=== PATIENT | female | born 1995 | race Caucasian/White ===

== ENCOUNTER 2018-01-17 15:49 | Emergency (ER) | payer BC ==
[~2018-01-17] VITALS: Ht 170.2 cm; Wt 65.6 kg
[2018-01-17 15:56] VITALS: Ht 170.2 cm; Wt 65.6 kg
[2018-01-17] MEDS ORDERED: KETOROLAC TROMETHAMINE 30 MG/ML VIAL IV STA (17:09)
[2018-01-17] MEDS ORDERED: SODIUM CHLORIDE 0.9% 1000ML 2,000 ML IV STA (17:09)
[2018-01-17] MEDS ORDERED: ONDANSETRON INJ 2 MG/ML 2 ML VIAL IV STA (17:09)
[2018-01-17] MEDS ORDERED: OPTIRAY 320 IV PRN (17:15)
[2018-01-17 17:36] LABS: BASO % 0.2 %; BASO ABS # 0.01 K/uL (0-0.2); HEMATOCRIT 44.7 % (37-47); HEMOGLOBIN 15.6 g/dL (12.0-16.0); IG# 0.01 K/uL (0.00-0.02); LYMPH ABS # 0.81 K/uL (1.2-3.4); MEAN CELL VOLUME 87.5 fL (80-100); MEAN CORPUSCULAR HEMOGLOBIN 30.5 pg (25-34); MEAN CORPUSCULAR HGB CONC 34.9 g/dl (32-36); MONO % 6.1 %; MONO ABS # 0.38 K/uL (0.11-0.59); NEUT % 80.5 %; PLATELET COUNT 158 K/uL (130-400); RED CELL DISTRIBUTION WIDTH CV 13.1 % (11.5-14.5); RED CELL DISTRIBUTION WIDTH SD 42.3 fL (36.4-46.3); WHITE BLOOD COUNT 6.21 K/uL (4.8-10.8)
--- NOTE | 2018-01-17 17:38 | EMERGENCY ROOM VISIT NOTE ---
History Report prepared by [place]: Bere Chong Under the Supervision of: Dr. Jermain Duarte D.O. First contact with patient: 16:59 Chief Complaint: HEAD PAIN Stated Complaint: HIGH FEVER, HEADACHE, NAUSEA History of Present Illness The patient is a 22 year old female who presents to the Emergency Room with complaints of worsening stomach pain that she describes as a stabbing pain that began about three days ago. The patient states that her ribs feel sore. The patient states that currently she just feels nauseous but states that this morning she vomited. The patient also states that she also began to have a headache yesterday. She states that she has a dry cough that began yesterday, but denies a runny nose, sore throat, or ear pain. She states that she coughs when she feels like she is about to vomit. The patient also denies any diarrhea or urinary symptoms. She states that she did not take her temperature but last night she began to feel very hot and woke up sweating all over her body. The patient states that she went to a clinic today where she was told that she has a fever of 101.3 and she was told to come to the ED. The patient states that she just got her period today, but states that she has no other vaginal bleeding. The patient states that she has not eaten yet today. She states that she takes control and Claritin. The patient states that she still has her gallbladder and appendix. . Source of History: patient Onset: three days ago Position: abdomen Quality: stabbing Timing: worsening Associated Symptoms: + fevers, + headache, + cough (dry), + nausea, + vomiting, No sorethroat, No diarrhea, No urinary symptoms Review of Systems See HPI for pertinent positives & negatives. A total of 10 systems reviewed and were otherwise negative. Social History Smoking Status: Never Smoker Current/Historical Medications Scheduled Control Pills ( Control Pills), 1 TAB PO DAILY Loratadine & Pseudoephedrine (Claritin-D 24 Hour), 1 TAB PO DAILY Montelukast Sodium (Singulair), 10 MG PO QAM Scheduled PRN Albuterol Hfa (Ventolin Hfa), 2 PUFFS INH Q6H PRN for SOB/Wheezing Allergies Coded Allergies: Sulfa Antibiotics (Verified Allergy, Unknown, UNKNOWN, 01/17/18) Physical Exam Vital Signs Date Time Temp Pulse Resp B/P (MAP) Pulse Ox O2 Delivery O2 Flow Rate FiO2 01/17/18 22:48 37.5 108 16 106/57 98 01/17/18 22:11 37.6 01/17/18 22:08 109 20 97 Room Air 01/17/18 22:00 102/51 01/17/18 21:38 103 25 96 Room Air 01/17/18 21:30 102/56 01/17/18 21:08 109 22 100 Room Air 01/17/18 21:04 115 01/17/18 21:03 115/65 01/17/18 20:30 122/73 01/17/18 20:07 112 16 99 Room Air 01/17/18 20:00 116/71 01/17/18 19:36 111 18 100 Room Air 01/17/18 19:30 112/65 01/17/18 18:36 115 22 97 Room Air 01/17/18 18:35 37.6 125 20 123/66 98 Room Air 01/17/18 17:38 122 20 117/78 99 Room Air 01/17/18 17:09 144 01/17/18 15:56 39.5 142 20 118/76 98 Room Air Physical Exam GENERAL: Sitting up in bed, alert, well appearing, well nourished, no distress, non-toxic EYE EXAM: normal conjunctiva. PERRL and EOM's grossly intact. OROPHARYNX: no exudate, no erythema, lips, buccal mucosa, and tongue normal and mucous membranes are moist EARS: TMs clear bilaterally. NECK: supple, no nuchal rigidity, no adenopathy, non-tender LUNGS: Clear to auscultation. Normal chest wall mechanics HEART: no murmurs, S1 normal and S2 normal. Tachycardic. ABDOMEN: abdomen soft, non-tender, normo-active bowel sounds, no masses, no rebound or guarding. BACK: Back is symmetrical on inspection and there is no deformity, no midline tenderness, no CVA tenderness. SKIN: no rashes and no bruising UPPER EXTREMITIES: upper extremities are grossly normal. LOWER EXTREMITIES: No pitting edema. NEURO EXAM: Normal sensorium, cranial nerves II-XII grossly intact, normal speech, no gross weakness of arms, no gross weakness of legs. Medical Decision & Procedures ER Provider Diagnostic Interpretation: Radiology results as stated below per my review and the radiologist's interpretation: HEAD WITHOUT CONTRAST (CT) CLINICAL HISTORY: 22 years-old Female presenting with BLAKE, high fever, nausea. TECHNIQUE: Multidetector CT imaging of the head was performed without the use of intravenous contrast. IV contrast: None. A dose lowering technique was used consistent with the principles of ALARA (as low as reasonably achievable). COMPARISON: None. CT DOSE (mGy.cm): The estimated cumulative dose is 537.48 mGy.cm. FINDINGS: Dining Chair Seat Cushion Trimmer topogram: Unremarkable. Ventricles and sulci normal in size. Brain parenchyma normal in appearance with preserved calderon-white differentiation. No mass effect or midline shift. No hemorrhage or acute territorial infarct. No extra-axial fluid collection. Paranasal sinuses and mastoid air cells clear. Calvarium intact. IMPRESSION: 1. No acute intracranial abnormality. Electronically signed by: Xavier Garzon M.D. 01/17/2018 7:07 PM Dictated Date/Time: 01/17/2018 7:05 PM SINGLE VIEW CHEST CLINICAL HISTORY: Cough and fever. FINDINGS: An AP, portable, upright chest radiograph is obtained. No prior studies are available for comparison at the time of dictation. The cardiomediastinal silhouette is unremarkable. The lungs and pleural spaces are clear. No pneumothorax is seen. The bony thorax is grossly intact. IMPRESSION: No active disease in the chest. Electronically signed by: Gonzalo Santiago M.D. 01/17/2018 5:45 PM Dictated Date/Time: 01/17/2018 5:45 PM ABD/PELVIS IV CONTRAST ONLY CLINICAL HISTORY: 22 years-old Female presenting with abd pain, headache and nausea, high fever. TECHNIQUE: Multidetector CT of the abdomen and pelvis was performed after the administration of intravenous contrast. IV contrast: 94 mL of Optiray 320. A dose lowering technique was used consistent with the principles of ALARA (as low as reasonably achievable). COMPARISON: None. CT DOSE (mGy.cm): The estimated cumulative dose is 430.87 mGy.cm. FINDINGS: Dining Chair Seat Cushion Trimmer topogram: Unremarkable. Lung bases: Minimal basilar opacities, likely atelectasis. Normal heart size. No pericardial or pleural effusion. Liver: Normal morphology. No liver lesion. Patent hepatic vasculature. Biliary: No intrahepatic or extrahepatic biliary ductal dilatation. Gallbladder decompressed. Pancreas: Normal. Spleen: Normal. Normal size measuring less than 13 cm in sagittal dimension. Adrenal glands: Normal. Kidneys and ureters: Normal. No hydronephrosis. Bladder: Incompletely evaluated secondary to underdistention. Pelvic organs: Uterus and ovaries normal. Bowel: The cecal wall may be slightly thickened (series 3 image 328). No pericolonic/pericecal inflammatory change. Small bowel contains a significant amount of fluid. No small bowel wall thickening is grossly appreciated. Normal appendix. No bowel obstruction. Peritoneal cavity: Trace free fluid in the pelvis. Lymph nodes: No enlarged lymph nodes in the abdomen or pelvis. Vasculature: Aorta and IVC patent and normal in caliber. Abdominal wall: Normal. Musculoskeletal: Osteitis condensans ilii. IMPRESSION: 1. Suggestion of cecal wall thickening without surrounding inflammatory change, which may suggest focal colitis. Small bowel fluid further evidences an enterocolitis. This is most likely infectious or inflammatory. 2. Otherwise no acute intra-abdominal pathology. Electronically signed by: Xavier Garzon M.D. 01/17/2018 7:22 PM Dictated Date/Time: 01/17/2018 7:07 PM Laboratory Results 01/17/18 17:20 Red Blood Count 5.11, Mean Corpuscular Volume 87.5, Mean Corpuscular Hemoglobin 30.5, Mean Corpuscular Hemoglobin Concent 34.9, Mean Platelet Volume 11.0, Neutrophils (%) (Auto) 80.5, Lymphocytes (%) (Auto) 13.0, Monocytes (%) (Auto) 6.1, Eosinophils (%) (Auto) 0.0, Basophils (%) (Auto) 0.2, Neutrophils # (Auto) 5.00, Lymphocytes # (Auto) 0.81, Monocytes # (Auto) 0.38, Eosinophils # (Auto) 0.00, Basophils # (Auto) 0.01 01/17/18 17:20 Test 01/17/18 17:15 01/17/18 17:20 01/17/18 20:47 Urine Color DK YELLOW Urine Appearance CLEAR (CLEAR) Urine pH 5.0 (4.5-7.5) Urine Specific [place] 1.030 (1.000-1.030) Urine Protein 2+ (NEG) Urine Glucose (UA) NEG (NEG) Urine Ketones 2+ (NEG) Urine Occult Blood 2+ (NEG) Urine Nitrite NEG (NEG) Urine Bilirubin NEG (NEG) Urine Urobilinogen NEG (NEG) Urine Leukocyte Esterase NEG (NEG) Urine WBC (Auto) 1-5 /hpf (0-5) Urine RBC (Auto) 10-30 /hpf (0-4) Urine Hyaline Casts (Auto) 1-5 /lpf (0-5) Urine Epithelial Cells (Auto) 10-20 /lpf (0-5) Urine Bacteria (Auto) NEG (NEG) Urine Test NEG (NEG) White Blood Count 6.21 K/uL (4.8-10.8) Red Blood Count 5.11 M/uL (4.2-5.4) Hemoglobin 15.6 g/dL (12.0-16.0) Hematocrit 44.7 % (37-47) Mean Corpuscular Volume 87.5 fL (80-100) Mean Corpuscular Hemoglobin 30.5 pg (25-34) Mean Corpuscular Hemoglobin Concent 34.9 g/dl (32-36) Platelet Count 158 K/uL (130-400) Mean Platelet Volume 11.0 fL (7.4-10.4) Neutrophils (%) (Auto) 80.5 % Lymphocytes (%) (Auto) 13.0 % Monocytes (%) (Auto) 6.1 % Eosinophils (%) (Auto) 0.0 % Basophils (%) (Auto) 0.2 % Neutrophils # (Auto) 5.00 K/uL (1.4-6.5) Lymphocytes # (Auto) 0.81 K/uL (1.2-3.4) Monocytes # (Auto) 0.38 K/uL (0.11-0.59) Eosinophils # (Auto) 0.00 K/uL (0-0.5) Basophils # (Auto) 0.01 K/uL (0-0.2) RDW Standard Deviation 42.3 fL (36.4-46.3) RDW Coefficient of Variation 13.1 % (11.5-14.5) Immature Granulocyte % (Auto) 0.2 % Immature Granulocyte # (Auto) 0.01 K/uL (0.00-0.02) Anion Gap 11.0 mmol/L (3-11) Est Creatinine Clear Calc Drug Dose 87.3 ml/min Estimated GFR () 93.9 Estimated GFR (Non- 81.0 BUN/Creatinine Ratio 6.8 (10-20) Calcium Level 9.1 mg/dl (8.5-10.1) Total Bilirubin 0.5 mg/dl (0.2-1) Direct Bilirubin 0.1 mg/dl (0-0.2) Aspartate Amino Transf (AST/SGOT) 10 U/L (15-37) Alanine Aminotransferase (ALT/SGPT) 19 U/L (12-78) Alkaline Phosphatase 52 U/L (45-117) Total Protein 8.1 gm/dl (6.4-8.2) Albumin 4.0 gm/dl (3.4-5.0) Lipase 78 U/L (73-393) CSF Color COLORLESS CSF Appearance CLEAR CSF WBC 1 /uL (0-5) CSF RBC 0 /uL (0) CSF Xanthrochromic NO XANTHOCHROMIA CSF Cell Count Tube # 4 CSF Chemistry Tube # 2 CSF Glucose 57 mg/dl (40-70) CSF Total Protein 36.2 mg/dl (15.0-45.0) Laboratory results per my review. Medications Administered Medications (Trade) Dose Ordered Sig/Mariaelena Route Start Time Stop Time Status Last Admin Dose Admin Sodium Chloride 2,000 ml @ 999 mls/hr Q2H1M STAT IV 01/17/18 17:09 01/17/18 19:09 DC 01/17/18 17:37 999 MLS/HR Ondansetron HCl (Zofran Inj) 4 mg NOW STAT IV 01/17/18 17:09 01/17/18 17:10 DC 01/17/18 17:38 4 MG Ketorolac Tromethamine (Toradol Inj) 30 mg NOW STAT IV 01/17/18 17:09 01/17/18 17:10 DC 01/17/18 17:38 30 MG Potassium Chloride (Klor-Con M10) 40 meq NOW STAT PO 01/17/18 18:04 01/17/18 18:05 DC 01/17/18 18:35 40 MEQ Sodium Chloride 1,000 ml @ 999 mls/hr Q1H1M STAT IV 01/17/18 19:26 01/17/18 20:26 DC 01/17/18 20:04 999 MLS/HR Acetaminophen (Tylenol Tab) 1,000 mg NOW STAT PO 01/17/18 19:47 01/17/18 19:48 DC 01/17/18 20:03 1,000 MG Lidocaine HCl (Xylocaine 1% Inj (Local)) 20 ml deeplocalK-MED ONCE .ROUTE 01/17/18 19:49 01/17/18 19:50 DC 01/17/18 20:57 20 ML Procedure Lumbar Puncture Indication: headache and fever . Verbal consent was obtained after the risks and benefits were explained, including but not limited to headache, bleeding/clotting, scarring, infection, pain, and bone/joint/nerve damage. At this time, the risks of the procedure are less than the risks of NOT performing the procedure. A time out was taken and the correct patient and site identified. The patient was placed in the seated position and the back was prepped with betadine and draped in the standard fashion. The L3 intervertebral space was identified, anesthetized locally with 1 % lidocaine without epinephrine, and the spinal needle was inserted through the skin with the bevel parallel to the dural fibers. The needle was carefully advanced into the lumbar cistern and 4 tubes of clear CSF was obtained on the first attempt. The stylet was replaced and the needle was removed. A bandaid was placed and the patient was placed in the supine position. The patient tolerated the procedure well and there were no complications. ED Course ED COURSE: Vital signs were reviewed and showed the patient is febrile and tachycardic. The patients medical record was reviewed The above diagnostic studies were performed and reviewed. ED treatments and interventions as stated above. 1700: The patient was evaluated in room C07. A complete history and physical examination was performed. 1709: Ordered Toradol Inj 30 mg IV, Zofran Inj 4 mg IV, and Sodium Chloride 2000 ml @ 999 mls/hr. 1804: Ordered Klor-Con M10 40 meq PO. 1926: Ordered Sodium Chloride 1000 ml @ 999 mls/hr. 1928: Upon reevaluation, the patient is better. Her heart rate is down into the low 100s. I discussed my findings with the patient and she understands and agrees with the treatment plan. 2225: Based on the patients age, coexisting illnesses, exam and lab findings the decision to treat as an outpatient was made. The patient remained stable while under my care. The patient appeared well at the time of discharge. Medical Decision Differential diagnosis includes etiologies such as sepsis, UTI, pneumonia, metabolic, electrolyte abnormalities, cardiac sources, intracerebral event, toxicologic, neurologic, as well as others were entertained. Patient is a 22-year-old female who presents the ER for mild diffuse abdominal pain which started Monday. She did vomit once today. She also notes to a dry cough which started yesterday. Last menstrual period started today. She also admits to a headache which started yesterday which was associated with fever which started yesterday as well. She denies any urinary symptoms. Abdominal exam is benign. There is no nuchal rigidity. Patient is febrile and tachycardic upon presentation. 2 IVs were established. She was given IV fluids. CBC along with BMP shows mild hypokalemia. Bilirubin, LFTs and lipase is normal. UA without signs of infection. was negative. Patient's main complaint was headache and fever. There is no nuchal rigidity. LP showed only 1 white cell. No RBCs. Not consistent with infection. Do favor the fevers with the unremarkable chest x-ray, CT head and CT abdomen/pelvis which shows possible no acute pathology with the exception of a possible focal colitis. Based on her cough and fever and otherwise unremarkable workup I do favor that symptoms are likely secondary to a viral URI. She was given multiple doses of fluids, Tylenol and Toradol. Heart rate and fever trended down. She was otherwise well-appearing discharged follow-up PCP as an outpatient. Of note she had absolutely no sore throat. Discussed with Pt concerning signs and symptoms to watch out for. Pt was instructed to follow up with their PCP and discussed with the patient their option to return to the ED at anytime for persistent or worsening symptoms. The appropriate anticipatory guidance and out-patient management, including indications for return to the emergency department, were explained at length to the patient and understood. Medication Reconcilliation Current Medication List: was personally reviewed by me Blood Pressure Screening Patient's blood pressure: Normal blood pressure Impression Primary Impression: URI (upper respiratory infection) Additional Impressions: Fever Hypokalemia Scribe Attestation The scribe's documentation has been prepared under my direction and personally reviewed by me in its entirety. I confirm that the note above accurately reflects all work, treatment, procedures, and medical decision making performed by me. Departure Information Dispostion Home / Self-Care Referrals No Doctor, Assigned (PCP) Forms HOME CARE DOCUMENTATION FORM, IMPORTANT VISIT INFORMATION, WORK / SCHOOL INSTRUCTIONS Patient Instructions My [facility] Additional Instructions Please follow up with your primary care doctor with in the next 24 hours. Any worsening of your symptoms, please return to the ED immediately. This includes any fevers greater than 100.4, worsening pain, chest pain, shortness breath, persistent nausea, vomiting, unable to eat or drink, or any other concerning signs or symptoms from your standpoint. Please take Tylenol or Motrin as needed for pain. I believe her symptoms are most likely related to a viral upper respiratory Problem Qualifiers Primary Impression: URI (upper respiratory infection) URI type: unspecified URI Qualified Codes: J06.9 - Acute upper respiratory infection, unspecified Additional Impressions: Fever Fever type: unspecified Qualified Codes: R50.9 - Fever, unspecified
--- NOTE | 2018-01-17 17:47 | DIAGNOSTIC IMAGING REPORT ---
SINGLE VIEW CHEST CLINICAL HISTORY: Cough and fever. FINDINGS: An AP, portable, upright chest radiograph is obtained. No prior studies are available for comparison at the time of dictation. The cardiomediastinal silhouette is unremarkable. The lungs and pleural spaces are clear. No pneumothorax is seen. The bony thorax is grossly intact. IMPRESSION: No active disease in the chest. Electronically signed by: Gonzalo Santiago M.D. 01/17/2018 5:45 PM Dictated Date/Time: 01/17/2018 5:45 PM
[2018-01-17 17:59] LABS: CALCIUM 9.1 mg/dl (8.5-10.1); TOTAL PROTEIN 8.1 gm/dl (6.4-8.2)
[2018-01-17] MEDS ORDERED: POTASSIUM CHLORIDE 10 MEQ TABCR PO STA (18:04)
--- NOTE | 2018-01-17 19:08 | DIAGNOSTIC IMAGING REPORT ---
HEAD WITHOUT CONTRAST (CT) CLINICAL HISTORY: 22 years-old Female presenting with BLAKE, high fever, nausea. TECHNIQUE: Multidetector CT imaging of the head was performed without the use of intravenous contrast. IV contrast: None. A dose lowering technique was used consistent with the principles of ALARA (as low as reasonably achievable). COMPARISON: None. CT DOSE (mGy.cm): The estimated cumulative dose is 537.48 mGy.cm. FINDINGS: Claims Adjuster topogram: Unremarkable. Ventricles and sulci normal in size. Brain parenchyma normal in appearance with preserved calderon-white differentiation. No mass effect or midline shift. No hemorrhage or acute territorial infarct. No extra-axial fluid collection. Paranasal sinuses and mastoid air cells clear. Calvarium intact. IMPRESSION: 1. No acute intracranial abnormality. Electronically signed by: Xavier Garzon M.D. 01/17/2018 7:07 PM Dictated Date/Time: 01/17/2018 7:05 PM
--- NOTE | 2018-01-17 19:23 | DIAGNOSTIC IMAGING REPORT ---
ABD/PELVIS IV CONTRAST ONLY CLINICAL HISTORY: 22 years-old Female presenting with abd pain, headache and nausea, high fever. TECHNIQUE: Multidetector CT of the abdomen and pelvis was performed after the administration of intravenous contrast. IV contrast: 94 mL of Optiray 320. A dose lowering technique was used consistent with the principles of ALARA (as low as reasonably achievable). COMPARISON: None. CT DOSE (mGy.cm): The estimated cumulative dose is 430.87 mGy.cm. FINDINGS: Home Connect Lpn topogram: Unremarkable. Lung bases: Minimal basilar opacities, likely atelectasis. Normal heart size. No pericardial or pleural effusion. Liver: Normal morphology. No liver lesion. Patent hepatic vasculature. Biliary: No intrahepatic or extrahepatic biliary ductal dilatation. Gallbladder decompressed. Pancreas: Normal. Spleen: Normal. Normal size measuring less than 13 cm in sagittal dimension. Adrenal glands: Normal. Kidneys and ureters: Normal. No hydronephrosis. Bladder: Incompletely evaluated secondary to underdistention. Pelvic organs: Uterus and ovaries normal. Bowel: The cecal wall may be slightly thickened (series 3 image 328). No pericolonic/pericecal inflammatory change. Small bowel contains a significant amount of fluid. No small bowel wall thickening is grossly appreciated. Normal appendix. No bowel obstruction. Peritoneal cavity: Trace free fluid in the pelvis. Lymph nodes: No enlarged lymph nodes in the abdomen or pelvis. Vasculature: Aorta and IVC patent and normal in caliber. Abdominal wall: Normal. Musculoskeletal: Osteitis condensans ilii. IMPRESSION: 1. Suggestion of cecal wall thickening without surrounding inflammatory change, which may suggest focal colitis. Small bowel fluid further evidences an enterocolitis. This is most likely infectious or inflammatory. 2. Otherwise no acute intra-abdominal pathology. Electronically signed by: Xavier Garzon M.D. 01/17/2018 7:22 PM Dictated Date/Time: 01/17/2018 7:07 PM
[2018-01-17] MEDS ORDERED: SODIUM CHLORIDE 0.9% 1000ML 1,000 ML IV STA (19:26)
[2018-01-17] MEDS ORDERED: ACETAMINOPHEN 500 MG TAB PO STA (19:47)
[2018-01-17] MEDS ORDERED: LIDOCAINE HCL 1% 20 ML VIAL ONE (19:49)
[2018-01-17 21:17] LABS: CSF GLUCOSE 57 mg/dl (40-70); CSF TOTAL PROTEIN 36.2 mg/dl (15.0-45.0)
[2018-01-17 22:48] VITALS: BP 106/57; PULSE 108; TEMP 37.5; O2SAT 98
[2018-01-19] MEDS ORDERED: MONT1TAB3 PO (16:40)
[2018-01-19] MEDS ORDERED: BCPILLS PO (16:40)
[2018-01-19] MEDS ORDERED: LORA-749 PO (16:40)
[2018-01-19] MEDS ORDERED: VNTHFA/IN INH (16:40)
== END 2018-01-17 22:45 | disposition home or self-care (01) ==
LOC: C.EDB 15:50 → C.EDC 22:45
DX: J06.9 Acute upper respiratory infection, unspecified (principal); R50.9 Fever, unspecified; E87.6 Hypokalemia; Z79.3 Long term (current) use of hormonal contraceptives; Z79.899 Other long term (current) drug therapy; Z88.2 Allergy status to sulfonamides

== ENCOUNTER 2018-01-19 21:12 | Emergency (ER) | payer BC ==
[~2018-01-19] VITALS: Ht 170.2 cm; Wt 68.8 kg
[~2018-01-19 21:12] MED LIST: BCPILLS PO; LORA-749 PO; MONT1TAB3 PO; VNTHFA/IN INH
[2018-01-19 21:30] VITALS: Ht 170.2 cm; Wt 68.8 kg
--- NOTE | 2018-01-19 22:21 | EMERGENCY ROOM VISIT NOTE ---
History Report prepared by Keon: Neymar Mayo Under the Supervision of: Dr. Rasheed Matthews M.D. First contact with patient: 21:46 Chief Complaint: FEVER Stated Complaint: RASH,FEVER,HEADACHE,STOMACH ACHE,NAUSEA History of Present Illness The patient is a 22 year old white female with a past medical history of asthma , eczema who presents to the ED with a cc of a constant rash beginning an hour prior to arrival. Positive relief of headache with lying down, worsening of headache with standing up, headache. Negative recent travel, spending a large amount of time outside, recent surgeries, eye drainage. Pt states she was evaluated in the ED a few days ago and had and intensive work-up, including an LP. She reports she started to feel better yesterday and was able to walk around [facility]. Pt notes she felt odd this morning and was going to follow-up with [facility]. She states she suddenly developed a horrible headache that she attributed to the LP. Pt reports she was told she could wait to see if it gets better or go to the ED for a possible blood patch. She notes she started to feel better and then developed a rash on her legs. Pt states she was advised by [facility] to go to the ED for possible [place] Spotted Fever because she was doing yard work a week ago and obtained several bug bites. She reports she had abdominal pain for the past two days and developed diarrhea this morning. Pt notes she is currently on her menstrual period. Source of History: patient Onset: an hour [employer] Position: leg (bilateral) Quality: other (rash) Timing: constant Associated Symptoms: + headache Note: Denies: eye drainage Review of Systems See HPI for pertinent positives and negatives. A total of ten systems were reviewed and were otherwise negative. Past Medical & Surgical Medical Problems: (1) Asthma (2) Eczema Family History Cancer FH: thyroid disease Heart disease Hypertension Social History Smoking Status: Never Smoker Alcohol Use: none Marital Status: single Occupation Status: [employer] student Current/Historical Medications Scheduled Control Pills ( Control Pills), 1 TAB PO DAILY Doxycycline (Monohydrate) (Doxycycline), 100 MG PO BID Loratadine & Pseudoephedrine (Claritin-D 24 Hour), 1 TAB PO DAILY Montelukast Sodium (Singulair), 10 MG PO QAM Scheduled PRN Albuterol Hfa (Ventolin Hfa), 2 PUFFS INH Q6H PRN for SOB/Wheezing Ondansetron Hcl (Zofran), 4 MG PO Q8H PRN for Nausea Allergies Coded Allergies: Sulfa Antibiotics (Verified Allergy, Unknown, UNKNOWN, 01/17/18) Physical Exam Vital Signs Date Time Temp Pulse Resp B/P (MAP) Pulse Ox O2 Delivery O2 Flow Rate FiO2 01/20/18 01:13 37.3 88 19 102/58 98 01/20/18 00:33 111 19 102/58 98 Room Air 01/19/18 22:34 105 01/19/18 21:30 37.3 111 20 108/69 98 Room Air Physical Exam GENERAL: Awake, alert, well-appearing, NAD HENT: Normocephalic, atraumatic. EYES: Normal conjunctiva. Sclera non-icteric. PERRL. No anisocoria. NECK: Supple. No nuchal rigidity. FROM. No signs of meningismus. RESPIRATORY: CTAB, no rhonchi, wheezing, crackles CARDIAC: RRR, no MRG ABDOMEN: Soft, ND, BS+, some epigastric discomfort. MSK: No chest wall TTP, no LE edema NEURO: GCS 15, CN 2-12 intact, moves all 4s on command SKIN: No rash or jaundice noted. No rash on palms or soles. Medical Decision & Procedures Laboratory Results 01/19/18 22:35 Red Blood Count 3.98, Mean Corpuscular Volume 87.2, Mean Corpuscular Hemoglobin 29.6, Mean Corpuscular Hemoglobin Concent 34.0, Mean Platelet Volume 11.5, Neutrophils (%) (Auto) 73.7, Lymphocytes (%) (Auto) 20.6, Monocytes (%) (Auto) 4.6, Eosinophils (%) (Auto) 1.1, Basophils (%) (Auto) 0.0, Neutrophils # (Auto) 2.07, Lymphocytes # (Auto) 0.58, Monocytes # (Auto) 0.13, Eosinophils # (Auto) 0.03, Basophils # (Auto) 0.00 01/19/18 22:35 Test 01/19/18 22:35 White Blood Count 2.81 K/uL (4.8-10.8) Red Blood Count 3.98 M/uL (4.2-5.4) Hemoglobin 11.8 g/dL (12.0-16.0) Hematocrit 34.7 % (37-47) Mean Corpuscular Volume 87.2 fL (80-100) Mean Corpuscular Hemoglobin 29.6 pg (25-34) Mean Corpuscular Hemoglobin Concent 34.0 g/dl (32-36) Platelet Count 118 K/uL (130-400) Mean Platelet Volume 11.5 fL (7.4-10.4) Neutrophils (%) (Auto) 73.7 % Lymphocytes (%) (Auto) 20.6 % Monocytes (%) (Auto) 4.6 % Eosinophils (%) (Auto) 1.1 % Basophils (%) (Auto) 0.0 % Neutrophils # (Auto) 2.07 K/uL (1.4-6.5) Lymphocytes # (Auto) 0.58 K/uL (1.2-3.4) Monocytes # (Auto) 0.13 K/uL (0.11-0.59) Eosinophils # (Auto) 0.03 K/uL (0-0.5) Basophils # (Auto) 0.00 K/uL (0-0.2) RDW Standard Deviation 43.6 fL (36.4-46.3) RDW Coefficient of Variation 13.5 % (11.5-14.5) Immature Granulocyte % (Auto) 0.0 % Immature Granulocyte # (Auto) 0.00 K/uL (0.00-0.02) Anion Gap 10.0 mmol/L (3-11) Est Creatinine Clear Calc Drug Dose 80.8 ml/min Estimated GFR () 85.6 Estimated GFR (Non- 73.8 BUN/Creatinine Ratio 7.0 (10-20) Calcium Level 8.0 mg/dl (8.5-10.1) Total Bilirubin 0.6 mg/dl (0.2-1) Direct Bilirubin 0.4 mg/dl (0-0.2) Aspartate Amino Transf (AST/SGOT) 28 U/L (15-37) Alanine Aminotransferase (ALT/SGPT) 56 U/L (12-78) Alkaline Phosphatase 97 U/L (45-117) Total Protein 5.7 gm/dl (6.4-8.2) Albumin 2.7 gm/dl (3.4-5.0) Lipase 75 U/L (73-393) Lyme Disease IgG Antibody NEG (NEG) Lyme Disease IgM Antibody NEG (NEG) Laboratory results reviewed by me Medications Administered Medications (Trade) Dose Ordered Sig/Mariaelena Route Start Time Stop Time Status Last Admin Dose Admin Sodium Chloride 1,000 ml @ 999 mls/hr Q1H1M STAT IV 01/19/18 22:22 01/19/18 23:22 DC 01/19/18 22:58 999 MLS/HR Ketorolac Tromethamine (Toradol Inj) 30 mg NOW STAT IV 01/19/18 22:22 01/19/18 22:23 DC 01/19/18 22:58 30 MG Acetaminophen (Tylenol Tab) 1,000 mg NOW STAT PO 01/19/18 22:22 01/19/18 22:23 DC 01/19/18 22:22 1,000 MG Prochlorperazine Edisylate (Compazine Inj) 10 mg NOW STAT IV 01/19/18 22:22 01/19/18 22:23 DC 01/19/18 22:58 10 MG Diphenhydramine HCl (Benadryl Inj) 25 mg NOW STAT IV 01/19/18 22:22 01/19/18 22:23 DC 01/19/18 22:22 25 MG Calcium Carbonate (Tums Chew Tab) 1,500 mg ONE STAT PO 01/19/18 23:54 01/19/18 23:55 DC 01/20/18 00:30 1,500 MG Potassium Chloride (Klor-Con Tab) 40 meq NOW STAT PO 01/19/18 23:54 01/19/18 23:55 DC 01/20/18 00:30 40 MEQ Doxycycline Hyclate (Vibramycin Cap) 100 mg NOW STAT PO 01/20/18 00:59 01/20/18 01:00 DC 01/20/18 00:59 100 MG Ondansetron HCl (ZOFRAN ODT 4MG Home Pack) 1 homepack UD ONCE PO 01/20/18 01:00 01/20/18 01:01 DC 01/20/18 01:00 1 HOMEPACK ECG Per My Interpretation Indication: tachycardia Rate (beats per minute): 102 Rhythm: sinus tachycardia Findings: other (Right axis deviation. Normal intervals.) ED Course 3: The patient was evaluated in room C06. A complete history and physical exam was performed. 2354: I reevaluated the patient. She is still having discomfort. Medical Decision The patient is a 22 year old white female with a past medical history of asthma , eczema who presents to the ED with a cc of a constant rash beginning an hour prior to arrival. Nursing notes reviewed. Ancillary studies and prior records reviewed. Differential diagnosis: Etiologies such as migraine headache, meningitis, sinusitis, CO exposure, ICH, SAH, infection, tumor, headache, sinus thrombosis, arterial dissection, as well as others were entertained. Patient was seen and evaluated the bedside. The patient had recently been CT of the abdomen pelvis. Patient's blood work is fairly unremarkable LP was negative. The patient was discharged home. The patient was complaining of some GI discomfort with some associated headache. The patient also did have some mild back pain. Patient's back does not show any overlying skin changes. The patient does not have any in in her back based on her exam. Patient did have blood work completed and the patient was given medications for symptom control. Upon reassessment the patient was feeling okay. Patient was told that she does have some relative pancytopenia she has some decreased white blood cell count hemoglobin and platelet count compared to prior. Of note the patient does not have any evidence of spontaneous bleeding purpura or petechiae. Given that the patient does have these relative changes in her cell counts I did consider the possibility of tickborne illnesses. The patient did have Lyme's ehrlichiosis and anaplasmosis testing also added. I did state that we could start the patient on doxycycline. I did tell the patient that we would not have all the results likely for several days as these labs are send outs. I did state that the patient should call the the hospital in order to obtain his results in order to determine whether or not she should continue to take the doxycycline. Patient was told to call in 5 days. Patient was feeling improved and again does not have any worsening headache. I did discuss the possibility of obtaining a blood patch given her history of LP. The patient declined at this time. The patient has a nonfocal neurologic exam is otherwise much improved after symptomatic control. Patient tolerated p.o. I did discuss the plan of care with both patient and mother. They were in agreement. Patient was given strict follow-up, discharge, and return precautions. All questions were answered. Patient was deemed suitable for outpatient follow-up at this time. Patient agreed with the plan of care and was safely discharged home. Medication Reconcilliation Current Medication List: was personally reviewed by me Blood Pressure Screening Patient's blood pressure: Normal blood pressure Blood pressure disposition: Did not require urgent referral Impression Primary Impression: Headache Additional Impressions: Gastritis Pancytopenia Hypokalemia Hypocalcemia Scribe Attestation The scribe's documentation has been prepared under my direction and personally reviewed by me in its entirety. I confirm that the note above accurately reflects all work, treatment, procedures, and medical decision making performed by me. Departure Information Dispostion Home / Self-Care Prescriptions Ondansetron Hcl (ZOFRAN) 4 Mg Tab 4 MG PO Q8H Y for Nausea, #12 TAB Prov: Rasheed Matthews M.D. 01/20/18 Doxycycline (Monohydrate) (Doxycycline) 100 Mg Cap 100 MG PO BID for 21 Days, #42 TAB Prov: Rasheed Matthews M.D. 01/20/18 Referrals [facility] (PCP) Patient Instructions ED Headache Post Spinal Tap No Patc, ED Nausea Vomiting, My [facility] Additional Instructions Please return to the emergency department if you have worsening or recurrent symptoms not amenable to at-home treatment. Please call for a follow-up appointment with her primary care physician. Please take your medications as prescribed. If you have other concerns and/or complaints please feel free to also call your primary care physician's office or return the ED for further evaluation, management, and treatment. You may take 600 mg Ibuprofen every 6 hours as needed for pain/fever with food unless told by your physician not to take NSAIDs. You may take tylenol 650 mg every 6 hours as needed for pain/fever unless told by your physician to not take it or have liver problems. You may take motrin and tylenol separately or at the same time. Take your medications as prescribed. If taking an antibiotic consider taking a probiotic and/or eating yogurt, but at the least, please take with food as it can cause upset stomach. To help with your reflux type symptoms please consider smaller more frequent meals. Please do not lay down after eating. Consider avoiding spicy, citrus, peppermint, chocolate. Consider taking a PPI like Nexium 20 mg daily or an antihistamine like Pepcid 20 mg twice daily. Sitting upright may help improve your symptoms also. Do not lay down after eating or drinking. You may also try things like Tums or Maalox. Avoid alcohol and hydrate well with clear liquids. If you do not receive a phone call from the Medical Center within 5 days please call [phone] to obtain results of your tickborne illness blood work. You have been examined and treated today on an emergency basis only. This is not a substitute for, or an effort to provide, complete comprehensive medical care. It is impossible to recognize and treat all injuries or illnesses in a single emergency department visit. It is therefore important that you follow up closely with [facility], your PCP, and/or your specialist(s). Call as soon as possible for an appointment. Thank you for your time and consideration. I look forward to speaking with you again soon. Please don't hesitate to call us if you have any questions. Problem Qualifiers Primary Impression: Headache Headache type: unspecified Headache chronicity pattern: acute headache Intractability: not intractable Qualified Codes: R51 - Headache Additional Impressions: Gastritis Gastritis type: unspecified gastritis Chronicity: acute Gastritis bleeding : presence of bleeding unspecified Qualified Codes: K29.00 - Acute gastritis without bleeding
[2018-01-19] MEDS ORDERED: KETOROLAC TROMETHAMINE 30 MG/ML VIAL IV STA (22:22)
[2018-01-19] MEDS ORDERED: SODIUM CHLORIDE 0.9% 1000ML 1,000 ML IV STA (22:22)
[2018-01-19] MEDS ORDERED: ACETAMINOPHEN 500 MG TAB PO STA (22:22)
[2018-01-19] MEDS ORDERED: PROCHLORPERAZINE 5 MG/ML 2 ML VIAL IV STA (22:22)
[2018-01-19] MEDS ORDERED: DiphenhydrAMINE HCL 50 MG/ML VIAL IV STA (22:22)
[2018-01-19 23:01] LABS: EOS % 1.1 %; EOS ABS # 0.03 K/uL (0-0.5); HEMATOCRIT 34.7 % (37-47); HEMOGLOBIN 11.8 g/dL (12.0-16.0); LYMPH % 20.6 %; LYMPH ABS # 0.58 K/uL (1.2-3.4); MEAN CELL VOLUME 87.2 fL (80-100); MEAN CORPUSCULAR HEMOGLOBIN 29.6 pg (25-34); MEAN PLATELET VOLUME 11.5 fL (7.4-10.4); MONO % 4.6 %; MONO ABS # 0.13 K/uL (0.11-0.59); NEUT % 73.7 %; NEUT ABS # 2.07 K/uL (1.4-6.5); PLATELET COUNT 118 K/uL (130-400); RED CELL DISTRIBUTION WIDTH CV 13.5 % (11.5-14.5); RED CELL DISTRIBUTION WIDTH SD 43.6 fL (36.4-46.3); WHITE BLOOD COUNT 2.81 K/uL (4.8-10.8)
[2018-01-19 23:26] LABS: ALBUMIN 2.7 gm/dl (3.4-5.0); CREATININE 1.08 mg/dl (0.60-1.20); TOTAL PROTEIN 5.7 gm/dl (6.4-8.2)
[2018-01-19] MEDS ORDERED: POTASSIUM CHLORIDE 20 MEQ TABCR PO STA (23:54)
[2018-01-19] MEDS ORDERED: CALCIUM CARBONATE 500 MG CHEWABLE PO STA (23:54)
[2018-01-20] MEDS ORDERED: DOXYCYCLINE HYCLATE 100 MG CAP PO STA (00:59)
[2018-01-20] MEDS ORDERED: ONDANSETRON HOME PACK 4MG OD TAB PO ONE (01:00)
[2018-01-20] MEDS ORDERED: DOXY-300 PO (01:06)
[2018-01-20] MEDS ORDERED: ONDA4TAB46 PO (01:06)
[2018-01-20 01:13] VITALS: BP 102/58; PULSE 88; TEMP 37.3; O2SAT 98
[2018-01-23] MEDS ORDERED: PRD20 PO (13:05)
[2018-01-23] MEDS ORDERED: DXY100 PO (13:07)
== END 2018-01-20 01:13 | disposition home or self-care (01) ==
LOC: C.EDB 21:13 → C.EDC 01-20 01:13
DX: R51 Headache (principal); K29.00 Acute gastritis without bleeding; D61.818 Other pancytopenia; E87.6 Hypokalemia; E83.51 Hypocalcemia; J45.909 Unspecified asthma, uncomplicated; Z80.9 Family history of malignant neoplasm, unspecified; Z82.49 Family history of ischemic heart disease and other diseases of the circulatory system; Z83.49 Family history of other endocrine, nutritional and metabolic diseases; Z79.3 Long term (current) use of hormonal contraceptives; Z79.899 Other long term (current) drug therapy; Z88.2 Allergy status to sulfonamides

== ENCOUNTER 2018-01-21 17:00 | Inpatient (IN) | payer BC ==
[~2018-01-21] VITALS: Ht 170.2 cm; Wt 66.9 kg
[~2018-01-21 17:00] MED LIST changes: +DOXY-300 PO; +ONDA4TAB46 PO
[2018-01-21] MEDS ORDERED: SODIUM CHLORIDE 0.9% 1000ML 1,000 ML IV STA (17:29)
[2018-01-21] MEDS ORDERED: DiphenhydrAMINE HCL 50 MG/ML VIAL IV STA ×2 (17:29→23:35)
[2018-01-21] MEDS ORDERED: CAFFEINE CITRATE 500 MG in SODIUM CHLORIDE 0.9% 1000ML 1,000 ML IV STA (17:29)
[2018-01-21] MEDS ORDERED: PROCHLORPERAZINE 5 MG/ML 2 ML VIAL IV STA (17:29)
--- NOTE | 2018-01-21 17:42 | EMERGENCY ROOM VISIT NOTE ---
History Report prepared by Keon: Bere Chong Under the Supervision of: Dr. Camille Pelletier M.D. First contact with patient: 17:21 Chief Complaint: HEADACHE Stated Complaint: HEADACHE AND NAUSEA History of Present Illness The patient is a 22 year old female who presents to the Emergency Room with complaints of a constant headache that began a couple of days ago. The patient states that she has vomited three times today. She states that this is the "worst headache" she has "ever had". The patient states that the pain is on her forehead. The patient states that this headache is worsened when sitting up or standing. The patient's mother states that the patient got sick about six days ago. The patient states that she was in the ED on Monday, 4 days ago, and Monday, 2 days ago. The patient states that she got an LP 4 days ago during her visit. The patient states that she takes control pills and she is currently on her period. She states that she sometimes consumes alcohol on the weekends but states that she has not consumed any alcohol in the past few days. Source of History: patient, parent Onset: couple of days ago Position: head Quality: ache, other (worst she has ever head) Timing: constant Modifying Factors (Worsening): other (sitting or standing) Associated Symptoms: + vomiting Review of Systems See HPI for pertinent positives & negatives. A total of 10 systems reviewed and were otherwise negative. Past Medical & Surgical Medical Problems: (1) Asthma (2) Eczema Family History Cancer FH: thyroid disease Heart disease Hypertension Social History Smoking Status: Never Smoker Alcohol Use: none Marital Status: single Housing Status: lives with significant other Occupation Status: [employer] Current/Historical Medications Scheduled Control Pills ( Control Pills), 1 TAB PO DAILY Doxycycline (Monohydrate) (Doxycycline), 100 MG PO BID Doxycycline Hyclate (Doxycycline Hyclate), 100 MG PO BID Loratadine & Pseudoephedrine (Claritin-D 24 Hour), 1 TAB PO DAILY Montelukast Sodium (Singulair), 10 MG PO QAM Prednisone (Prednisone), 40 MG PO DAILY Scheduled PRN Albuterol Hfa (Ventolin Hfa), 2 PUFFS INH Q6H PRN for SOB/Wheezing Ondansetron Hcl (Zofran), 4 MG PO Q8H PRN for Nausea Allergies Coded Allergies: Sulfa Antibiotics (Verified Allergy, Unknown, UNKNOWN, 01/21/18) Physical Exam Vital Signs Date Time Temp Pulse Resp B/P (MAP) Pulse Ox O2 Delivery O2 Flow Rate FiO2 01/21/18 23:05 38.3 105 16 114/94 100 Room Air 01/21/18 22:14 90 20 124/81 100 Room Air 01/21/18 21:02 101 20 119/82 100 Room Air 01/21/18 18:24 101 20 109/71 100 Room Air 01/21/18 17:05 36.7 131 20 114/72 97 Room Air Physical Exam Vital signs reviewed. General: Well-appearing 22 year old female, in no significant distress. HEENT: No scleral icterus, PERRLA, neck supple. Atraumatic. Cardiovascular: no extra sounds. Slightly tachycardic Pulmonary: Clear to auscultation bilaterally, normal work of breathing. Abdomen: Soft, nontender, nondistended, positive bowel sounds. Musculoskeletal: Atraumatic, no peripheral edema. Neurologic: Patient awake alert and oriented x 3, full strength in all 4 extremities. Cranial nerves 2 through 12 grossly intact. No meningeal signs. Skin: Warm, dry. Faint erythematous rash. Flushed facial checks. Medical Decision & Procedures Laboratory Results Test 01/21/18 00:00 01/21/18 17:49 Direct Bilirubin 0.3 mg/dl (0-0.2) Nucleated RBC Absolute Count (auto) 0.00 K/uL (0-0) Nucleated Red Blood Cells % 0.0 % Large Platelets 1+ Echinocytes 1+ Peripheral Blood Smear Path Consult Laboratory results per my review. Medications Administered Medications (Trade) Dose Ordered Sig/Mariaelena Route Start Time Stop Time Status Last Admin Dose Admin Prochlorperazine Edisylate (Compazine Inj) 10 mg NOW STAT IV 01/21/18 17:29 01/21/18 17:31 DC 01/21/18 17:44 10 MG Diphenhydramine HCl (Benadryl Inj) 25 mg NOW STAT IV 01/21/18 17:29 01/21/18 17:31 DC 01/21/18 17:45 25 MG Sodium Chloride 1,000 ml @ 999 mls/hr Q1H1M STAT IV 01/21/18 17:29 01/21/18 18:29 DC 01/21/18 17:44 999 MLS/HR Caffeine Citrated 500 mg/Sodium Chloride 1,025 ml @ 512.5 mls/ hr ONE STAT IV 01/21/18 17:29 01/21/18 19:28 DC 01/21/18 18:20 512.5 MLS/HR Potassium Chloride 100 ml @ 100 mls/hr NOW STAT IV 01/21/18 18:30 01/21/18 19:29 DC 01/21/18 18:46 100 MLS/HR Hydromorphone HCl (Dilaudid Inj) 0.5 mg NOW STAT IV 01/21/18 19:37 01/21/18 19:38 DC 01/21/18 19:43 0.5 MG Ondansetron HCl (Zofran Inj) 4 mg NOW STAT IV 01/21/18 19:37 01/21/18 19:38 DC 01/21/18 19:43 4 MG Diphenhydramine HCl (Benadryl Inj) 25 mg NOW STAT IV 01/21/18 23:35 01/21/18 23:43 DC 01/21/18 23:57 25 MG ED Course 8: Past medical records reviewed. The patient was evaluated in room C8. A complete history and physical examination was performed. 1728: Ordered Caffeine Citrate 500 mg/Sodium Chloride 1025 ml @ 512.5 mls/hr IV , Sodium Chloride 1000 ml @ 999 mls/hr IV, Benadryl Inj 25 mg IV, and Compazine Inj 10 mg IV. 1829: Ordered Potassium Chloride 100 ml @ 100 mls/hr IV. 1934: I checked on and updated the patient. 2051: Dr. Jones-Anesthesia is performing a blood patch on the patient. 2124: [facility] He will evaluate the patient further. Medical Decision Differential diagnosis: Etiologies such as migraine headache, meningitis, sinusitis, CO exposure, ICH, SAH, infection, tumor, headache, sinus thrombosis, arterial dissection, post lumbar puncture headache, as well as others were entertained. This patient was evaluated and appeared to be in no significant distress. IV access was obtained and laboratory work was drawn. Patient was medicated with IV Compazine, IV Benadryl and IV caffeine. She was hydrated with normal saline solution. Patient had minimal resolution of her symptoms with a 3/10 headache while lying down. She states the headaches still worsens to an 8 out of 10 when ambulating. Patient was discussed with anesthesia for consultation. Due to the question of anaplasmosis and periodic subjective fevers at home, anesthesia declined to perform the blood patch. I do feel that this is reasonable given the unknown infectious etiology. Patient and mother were advised of the findings and plan, patient was reevaluated on multiple occasions. I did speak with anesthesia, Dr. Harper at length. Patient was given IV Dilaudid for continued pain. She will be evaluated by the hospitalist service for intractable headache while awaiting pathology results. Anesthesia may be reconsulted for blood patch if deemed to be safe. Patient and mother are aware of this plan and agree. Medication Reconcilliation Current Medication List: was personally reviewed by me Blood Pressure Screening Patient's blood pressure: Normal blood pressure Impression Primary Impression: Post lumbar puncture headache Additional Impression: Leukopenia Scribe Attestation The scribe's documentation has been prepared under my direction and personally reviewed by me in its entirety. I confirm that the note above accurately reflects all work, treatment, procedures, and medical decision making performed by me. Departure Information Dispostion Being Evaluated By Hospitalist Prescriptions Doxycycline Hyclate (Doxycycline Hyclate) 100 Mg Cap 100 MG PO BID for 8 Days, #16 CAP Prov: Candelario Schneider MD, PhD 01/23/18 Prednisone (Prednisone) 20 Mg Tab 40 MG PO DAILY for 3 Days, #2 TAB 2omg tab, 1 tab po x1 day, then 1/2 tab po daily for 2 day then stop Prov: Candelario Schneider MD, PhD 01/23/18 [facility] (PCP) Patient Instructions My [facility] Problem Qualifiers
[2018-01-21 18:01] LABS: BASO % 0.5 %; BASO ABS # 0.01 K/uL (0-0.2); EOS % 5.3 %; HEMATOCRIT 35.9 % (37-47); HEMOGLOBIN 12.3 g/dL (12.0-16.0); IG# 0.01 K/uL (0.00-0.02); LYMPH % 27.7 %; LYMPH ABS # 0.52 K/uL (1.2-3.4); MEAN CELL VOLUME 86.9 fL (80-100); MEAN CORPUSCULAR HEMOGLOBIN 29.8 pg (25-34); MEAN CORPUSCULAR HGB CONC 34.3 g/dl (32-36); MEAN PLATELET VOLUME 10.8 fL (7.4-10.4); MONO % 7.4 %; MONO ABS # 0.14 K/uL (0.11-0.59); NEUT % 58.6 %; PLATELET COUNT 171 K/uL (130-400); RED CELL DISTRIBUTION WIDTH SD 44.5 fL (36.4-46.3); WHITE BLOOD COUNT 1.88 K/uL (4.8-10.8)
[2018-01-21 18:19] LABS: CALCIUM 8.8 mg/dl (8.5-10.1); CREATININE 1.04 mg/dl (0.60-1.20); POTASSIUM 3.1 mmol/L (3.5-5.1)
[2018-01-21] MEDS ORDERED: POTASSIUM CHLR 10 MEQ / WTR 100 ML IV STA (18:30)
[2018-01-21] MEDS ORDERED: ONDANSETRON INJ 2 MG/ML 2 ML VIAL IV STA (19:37)
[2018-01-21] MEDS ORDERED: HYDROmorphone INJ 0.5 MG/0.5 ML SYR IV STA (19:37)
[2018-01-21 21:55] LABS: ALBUMIN 2.9 gm/dl (3.4-5.0); TOTAL PROTEIN 6.4 gm/dl (6.4-8.2)
--- NOTE | 2018-01-21 22:36 | Anesthesiology Progress Note ---
Anesthesia Progress Note Date of Service Jan 21, 2018. Progress Notes Consult for Possible Postdural Puncture Headache and Epidural Blood Patch Placement Ms. Iqbal is a 22 year old female who presented 4 days ago to [facility] ED for headache, fever, abdominal pain, cough, nausea and vomiting. Her workup at that time included spinal tap with LP fluid showing only 1 WBC. She represented a few days later for worsening headache, now with a positional component. She represented again today for worsening headache, nausea, and vomiting. She states the headache is the worst of her life. It is predominantly frontal in nature with some pain behind her eyes and on the top of her head. She describes some degree of photophobia. Most notable though, she states the pain is worse with sitting or standing and is improved by laying flat. The headache is debilitating and she has been unable to attend her classes at [employer]. In addition, she and her mother also stated that she continues to have fevers and she is currently taking doxycycline for possible anaplasmosis infection. PMH is significant for asthma and eczema. She is allergic to sulfa. She denies tobacco use and she uses alcohol occasionally. On presentation to the ED today she was afebrile, but tachycardic.Her labs were notable for hypokalemia, and a low WBC (1.88). When speaking with her, it was notable that she remained laying down and avoided moving her head. I suspect that at least some component if not all of Ms. Vangs headache is secondary to her LP. Many of her symptoms are consistent with a classical postdural puncture headache. Unfortunately, an epidural blood patch is best avoided at this time, due to possible infection with anaplasmosis. I discussed the risk of placing a blood patch with both Ms. Iqbal and her mother and recommended against placement at this time. I spoke with Dr. Pelletier about my recommendation and we discussed that Ms. Iqbal might be a candidate if her tests come back negative for anaplasmosis, her lab's show improvement, and she remains afebrile. In the meantime, I would recommend conservative management including hydration, caffeine, pain medications, and muscle relaxants. The team can also consider cosyntropin, between 0.5 to 1 mg IV. Although mostly used prophylactically, there are some reports of cosyntropin relieving PDPH that cannot be managed with blood patch. If Ms. Rasheed's headache continues and if she is cleared from an infectious standpoint, please recontact the anesthesiology department for reconsideration of blood patch placement. Thank you for the opportunity to assist in the care of Ms. Iqbal Shira Caban MD, PhD Anesthesiology
[2018-01-21] MEDS ORDERED: POLYETHYLENE (MIRALAX) 17 GM PACK PO PRN (23:45)
[2018-01-21] MEDS ORDERED: ALUMINUM/MAGNESIUM/SIMETH (MAALOX MAX) 30 ML UDC PO PRN (23:45)
[2018-01-21] MEDS ORDERED: MAGNESIUM HYDROXIDE SUSP 30 ML UDC PO PRN (23:45)
[2018-01-21] MEDS ORDERED: ACETAMINOPHEN 325 MG TAB PO PRN (23:45)
[2018-01-21] MEDS: ACETAMINOPHEN 325 MG TAB PO PRN (23:58)
[2018-01-22] VITALS (7 sets, daily range): BP systolic 94–122; BP diastolic 56–83; PULSE 71–115; TEMP 36.9–38.3; O2SAT 93–94; Ht 170.2 cm; Wt 66.9 kg
--- NOTE | 2018-01-22 00:08 | History and Physical ---
History & Physical Date & Time of Service: Jan 21, 2018 at 23:43 Chief Complaint: Headache And Nausea Primary Care Physician: [facility] History of Present Illness Source: patient, parent, hospital records Patient is a 22 year old female with no significant past medical history that has presented with a 5 day history of headache, diarrhea and nausea Patient notes that she started having severe headache and was having abdominal pain on Monday and therefore she came to the emergency department. She had lab work done and had an LP. These were unremarkable. She also had a CT scan of her abdomen which showed some mild inflammation. She was discharged home. She continued to have a headache that was located along her bahai and was a very sharp headache. She went to see her PCP and was told to drink plenty of caffeine and fluids as her headache was likely due to the LP. Over the next day she developed a rash on her face, abdomen and lower extremities. It has been a bright red slightly itchy rash. She came to the ED for a second time and was once again sent home without any official diagnosis. The patient came back to the ED today due a worsening headache, worsening rash, x3 vomiting today, dry cough and low grade fever. Patient was told she might need a blood patch as her headache seems to be related to her LP. She has erlichiosis and anaplasmosis labs pending as this was ordered on previous ED visits. She has several lab abnormalities which might go along with one of these diagnosis. She has been taking doxycycline for the past two days. Past Medical/Surgical History Medical Problems: (1) Asthma (2) Eczema (3) Fever (4) Fever (5) Gastritis (6) Headache (7) Hypokalemia (8) Hypokalemia (9) URI (upper respiratory infection) (10) URI (upper respiratory infection) Family History Cancer FH: thyroid disease Heart disease Hypertension Social History Smoking Status: Never Smoker Smokeless Tobacco Use: No Alcohol Use: none Drug Use: none Marital Status: single Housing status: lives with significant other Occupational Status: [employer] student Immunizations History of Influenza Vaccine: Unknown History of Tetanus Vaccine?: Unknown History of Pneumococcal: Unknown History of Hepatitis B Vaccine: Unknown Allergies Coded Allergies: Sulfa Antibiotics (Verified Allergy, Unknown, UNKNOWN, 01/21/18) Home Medications Scheduled Control Pills ( Control Pills), 1 TAB PO DAILY Doxycycline (Monohydrate) (Doxycycline), 100 MG PO BID Loratadine & Pseudoephedrine (Claritin-D 24 Hour), 1 TAB PO DAILY Montelukast Sodium (Singulair), 10 MG PO QAM Scheduled PRN Albuterol Hfa (Ventolin Hfa), 2 PUFFS INH Q6H PRN for SOB/Wheezing Ondansetron Hcl (Zofran), 4 MG PO Q8H PRN for Nausea Review of Systems 10 systems reviewed and negative except as noted in the HPI Physical Exam Vital Signs Date Time Temp Pulse Resp B/P (MAP) Pulse Ox O2 Delivery O2 Flow Rate FiO2 01/21/18 23:05 38.3 105 16 114/94 100 Room Air 01/21/18 22:14 90 20 124/81 100 Room Air 01/21/18 21:02 101 20 119/82 100 Room Air 01/21/18 18:24 101 20 109/71 100 Room Air 01/21/18 17:05 36.7 131 20 114/72 97 Room Air General Appearance: WD/WN, + mild distress Head: normocephalic Eyes: PERRL, + abnormal sclerae exam (erythematous sclera) ENT: hearing grossly normal, + pharyngeal erythema (small red dots on pharynx) Neck: supple, no carotid bruits, trachea midline, + adenopathy present Respiratory/Chest: lungs clear, no respiratory distress, no accessory muscle use Cardiovascular: regular rate, rhythm, no edema, no murmur, normal peripheral pulses Abdomen/GI: normal bowel sounds, non tender, soft Back: normal inspection, no CVA tenderness Extremities/Musculoskelatal: no calf tenderness, no pedal edema Neurologic/Psych: alert, normal mood/affect, oriented x 3 Skin: + pertinent finding (diffuse fine erythematous rash on cheeks, abdomen and lower extremities) Diagnostics Laboratory Results Results Past 24 Hours Test 01/21/18 00:00 01/21/18 17:49 Range/Units Magnesium Level 1.5 1.8-2.4 mg/dl Total Bilirubin 0.5 0.2-1 mg/dl Direct Bilirubin 0.3 0-0.2 mg/dl Aspartate Amino Transf (AST/SGOT) 30 15-37 U/L Alanine Aminotransferase (ALT/SGPT) 83 12-78 U/L Alkaline Phosphatase 154 45-117 U/L Total Protein 6.4 6.4-8.2 gm/dl Albumin 2.9 3.4-5.0 gm/dl White Blood Count 1.88 4.8-10.8 K/uL Red Blood Count 4.13 4.2-5.4 M/uL Hemoglobin 12.3 12.0-16.0 g/dL Hematocrit 35.9 37-47 % Mean Corpuscular Volume 86.9 80-100 fL Mean Corpuscular Hemoglobin 29.8 25-34 pg Mean Corpuscular Hemoglobin Concent 34.3 32-36 g/dl Platelet Count 171 130-400 K/uL Mean Platelet Volume 10.8 7.4-10.4 fL Neutrophils (%) (Auto) 58.6 % Lymphocytes (%) (Auto) 27.7 % Monocytes (%) (Auto) 7.4 % Eosinophils (%) (Auto) 5.3 % Basophils (%) (Auto) 0.5 % Neutrophils # (Auto) 1.10 1.4-6.5 K/uL Lymphocytes # (Auto) 0.52 1.2-3.4 K/uL Monocytes # (Auto) 0.14 0.11-0.59 K/uL Eosinophils # (Auto) 0.10 0-0.5 K/uL Basophils # (Auto) 0.01 0-0.2 K/uL RDW Standard Deviation 44.5 36.4-46.3 fL RDW Coefficient of Variation 14.0 11.5-14.5 % Immature Granulocyte % (Auto) 0.5 % Immature Granulocyte # (Auto) 0.01 0.00-0.02 K/uL Nucleated RBC Absolute Count (auto) 0.00 0-0 K/uL Nucleated Red Blood Cells % 0.0 % Sodium Level 143 136-145 mmol/L Potassium Level 3.1 3.5-5.1 mmol/L Chloride Level 110 98-107 mmol/L Carbon Dioxide Level 24 21-32 mmol/L Anion Gap 10.0 3-11 mmol/L Blood Urea Nitrogen 7 7-18 mg/dl Creatinine 1.04 0.60-1.20 mg/dl Est Creatinine Clear Calc Drug Dose 83.9 ml/min Estimated GFR () 89.6 Estimated GFR (Non- 77.3 BUN/Creatinine Ratio 7.1 10-20 Random Glucose 86 70-99 mg/dl Calcium Level 8.8 8.5-10.1 mg/dl Diagnostic Radiology HEAD WITHOUT CONTRAST (CT) CLINICAL HISTORY: 22 years-old Female presenting with BLAKE, high fever, nausea. TECHNIQUE: Multidetector CT imaging of the head was performed without the use of intravenous contrast. IV contrast: None. A dose lowering technique was used consistent with the principles of ALARA (as low as reasonably achievable). COMPARISON: None. CT DOSE (mGy.cm): The estimated cumulative dose is 537.48 mGy.cm. FINDINGS: Outdoor Education Teacher topogram: Unremarkable. Ventricles and sulci normal in size. Brain parenchyma normal in appearance with preserved calderon-white differentiation. No mass effect or midline shift. No hemorrhage or acute territorial infarct. No extra-axial fluid collection. Paranasal sinuses and mastoid air cells clear. Calvarium intact. IMPRESSION: 1. No acute intracranial abnormality. [~ rep ct add3]] SINGLE VIEW CHEST CLINICAL HISTORY: Cough and fever. FINDINGS: An AP, portable, upright chest radiograph is obtained. No prior studies are available for comparison at the time of dictation. The cardiomediastinal silhouette is unremarkable. The lungs and pleural spaces are clear. No pneumothorax is seen. The bony thorax is grossly intact. IMPRESSION: No active disease in the chest. ABD/PELVIS IV CONTRAST ONLY CLINICAL HISTORY: 22 years-old Female presenting with abd pain, headache and nausea, high fever. TECHNIQUE: Multidetector CT of the abdomen and pelvis was performed after the administration of intravenous contrast. IV contrast: 94 mL of Optiray 320. A dose lowering technique was used consistent with the principles of ALARA (as low as reasonably achievable). COMPARISON: None. CT DOSE (mGy.cm): The estimated cumulative dose is 430.87 mGy.cm. FINDINGS: Outdoor Education Teacher topogram: Unremarkable. Lung bases: Minimal basilar opacities, likely atelectasis. Normal heart size. No pericardial or pleural effusion. Liver: Normal morphology. No liver lesion. Patent hepatic vasculature. Biliary: No intrahepatic or extrahepatic biliary ductal dilatation. Gallbladder decompressed. Pancreas: Normal. Spleen: Normal. Normal size measuring less than 13 cm in sagittal dimension. Adrenal glands: Normal. Kidneys and ureters: Normal. No hydronephrosis. Bladder: Incompletely evaluated secondary to underdistention. Pelvic organs: Uterus and ovaries normal. Bowel: The cecal wall may be slightly thickened (series 3 image 328). No pericolonic/pericecal inflammatory change. Small bowel contains a significant amount of fluid. No small bowel wall thickening is grossly appreciated. Normal appendix. No bowel obstruction. Peritoneal cavity: Trace free fluid in the pelvis. Lymph nodes: No enlarged lymph nodes in the abdomen or pelvis. Vasculature: Aorta and IVC patent and normal in caliber. Abdominal wall: Normal. Musculoskeletal: Osteitis condensans ilii. IMPRESSION: 1. Suggestion of cecal wall thickening without surrounding inflammatory change, which may suggest focal colitis. Small bowel fluid further evidences an enterocolitis. This is most likely infectious or inflammatory. 2. Otherwise no acute intra-abdominal pathology. Impression Assessment and Plan 22 year old female with no significant PMH has presented to [facility] with a headache , rash, diarrhea, vomiting, abdominal pain, fevers and fatigue. Her labs are significant for a low WCC, low potassium, low magnesium and mild elevation in liver enzymes. It is thought that her headache is due to her recent LP as well as an underlying infectious process. Post LP Headache - 600mg of ibuprofen q4 prn - encourage caffeine intake during the day - 120 mls/hr of NS w/ 40meq of potassium - stay laying down - once pathology comes back as negative then will likely need blood patch from anesthesiology Leukopenia secondary to viral process vs tick borne illness - start 2gram ceftriaxone IV - await anaplasmosis and erlichiosis labs from previous ED visit - order peripheral smear - order EBV, Parvovirus, CMV and Coxsackie B virus - tylenol 650mg prn for fever Hypokalemia - 120 mls/hr of NS w/ 40meq of potassium DVT prophylaxis - SCD's Full Code Attending addendum: I have physically seen this patient, have supervised the medical residents activities, and agree with the H&P unless as otherwise noted. Assessment and Plan: Headache/post LP/possibly associated with primary infectious process-- Anesthesiology unable to perform blood patch due to potential infectious process in blood. IV fluids. Pain control. NPO for now except medications. Neutropenia/potential causes including viral process, tickborne illness-- Neutropenic precautions. Empiric treatment ceftriaxone 2 g IV. Peripheral smear already pending. Order EBV, CMV, coxsackie B and parvovirus titers. Serial CBC with differential and chemistry profile. If counts decreased further in the a.m., would consult hematology. Remainder of orders and notations as above. Advanced Directives Existing Advance Directive: No Existing Living Will: No Existing Power of Social Media Job Titles: No Resuscitation Status VTE Prophylaxis Will order VTE Prophylaxis: Yes Social Service Consult None Apply
[2018-01-22] MEDS ORDERED: ALBUTEROL HFA 8 GM INHALER INH PRN (00:15)
[2018-01-22] MEDS ORDERED: ONDANSETRON 4 MG TAB PO PRN (00:15)
[2018-01-22] MEDS: POTASSIUM CHLORIDE INJ 40 MEQ in SODIUM CHLORIDE 0.9% 1000ML 1,000 ML IV SCH ×3 (00:57→16:40)
[2018-01-22] MEDS ORDERED: hydrOXYzine HCL 25 MG TAB PO STA (01:54)
[2018-01-22] MEDS ORDERED: DiphenhydrAMINE HCL 50 MG/ML VIAL IV ONE (02:00)
[2018-01-22] MEDS ORDERED: NURSING VERBAL MED ORDER ONE (02:00)
[2018-01-22] MEDS: ACETAMINOPHEN 325 MG TAB PO PRN ×2 (05:52→15:10)
[2018-01-22] MEDS: ONDANSETRON INJ 2 MG/ML 2 ML VIAL IV PRN ×2 (05:53→18:38)
[2018-01-22 06:34] LABS: ALBUMIN 2.3 gm/dl (3.4-5.0); CALCIUM 7.8 mg/dl (8.5-10.1); CREATININE 1.05 mg/dl (0.60-1.20); POTASSIUM 3.5 mmol/L (3.5-5.1)
[2018-01-22 06:42] LABS: HEMATOCRIT 33.3 % (37-47); HEMOGLOBIN 11.5 g/dL (12.0-16.0); MEAN CELL VOLUME 86.3 fL (80-100); MEAN CORPUSCULAR HEMOGLOBIN 29.8 pg (25-34); MEAN CORPUSCULAR HGB CONC 34.5 g/dl (32-36); MEAN PLATELET VOLUME 10.6 fL (7.4-10.4); PLATELET COUNT 205 K/uL (130-400); RED CELL DISTRIBUTION WIDTH CV 14.1 % (11.5-14.5); RED CELL DISTRIBUTION WIDTH SD 44.1 fL (36.4-46.3); WHITE BLOOD COUNT 2.53 K/uL (4.8-10.8)
[2018-01-22 06:43] LABS: BASO % 0.4 %; BASO ABS # 0.01 K/uL (0-0.2); LYMPH % 52.2 %; LYMPH ABS # 1.32 K/uL (1.2-3.4); MONO % 5.9 %; MONO ABS # 0.15 K/uL (0.11-0.59); NEUT % 37.5 %; NEUT ABS # 0.95 K/uL (1.4-6.5)
[2018-01-22] MEDS: CEFTRIAXONE SOD INJ 1 GM in DEXTROSE 5% ADD-VANTAGE 50ML 50 ML IV SCH (08:23)
[2018-01-22] MEDS: MONTELUKAST SOD 10 MG TAB PO SCH (08:25)
[2018-01-22] MEDS: DOXYCYCLINE HYCLATE 100 MG CAP PO SCH ×2 (08:40→20:37)
--- NOTE | 2018-01-22 11:04 | Progress Note ---
Progress Note Date of Service Jan 22, 2018. Progress Note ID Consult dictated #[id number] A/P: 1. Febrile Illness 2. Leukopenia/thrombocytopenia/transaminitis, concerned for anaplasmosis -continue doxy, will need 14 days -suspect rash is photosensitive reaction to doxy -Follow cbc, LFTS, improved today -thank you
[2018-01-22] MEDS: IBUPROFEN 600 MG TAB PO PRN ×2 (11:42→16:24)
--- NOTE | 2018-01-22 12:37 | INFECT. DISEASE CONSULTATION ---
DATE OF CONSULTATION: 01/22/2018 HISTORY OF PRESENT ILLNESS: This is a 22-year-old female who presented to the hospital with a 5-day history of headache and nausea. She was originally seen in the Emergency Room on 17 of January. At that time, she had a T-max of 39.5. Her white blood cell count was 6.2. Her platelets were unremarkable. She did have a peripheral smear that time as there was concern for tick-borne illness and this is reportedly negative. She did undergo a lumbar puncture because of her headache. She had only 1 WBC. Her protein and glucose were normal. CSF Gram stain and culture are negative and finalized. Anaplasma antibodies were done at that time and are pending. She denies any tick bites that she is aware of. She is here for college and is originally from [place]. Her family is at the bedside. She denies any sick contacts. She denies having any fever currently. On the , she returned to the Emergency Room with similar symptoms. This time, she was found to be afebrile. However, her white blood cell count had decreased to 2.8 and her platelets had diminished to 118. A Lyme titer was done at that time and the initial screen was negative. She presented again to the ER last night. In the ER, she was found to have a temperature of 38.3. She had continued headache and there was discussion about a blood patch, but due to the possibility for tick-borne illness, this was withheld. She again had a smear that was negative. Her white blood cell count had dropped again down to 1.8 and her platelets were 171. This morning, she had repeat laboratory studies done and her white blood cell count is increased to 2.5 and her platelets are up to 205. She was placed empirically on Rocephin. She has started doxycycline 2 days prior, because her mom was concerned regarding tick-borne illness. She had subsequently developed a rash on her lower extremities. This is not spreading to any other area. She denies any itching or pain associated with it. It is a diffuse erythematous rash over her anterior thighs and calves. She does not have any rash on her arms, trunk or face. Her headache subsequently has resolved with caffeine and pain medication overnight. She is also found to have a mild transaminitis with an AST of 30 and an ALT of 83. She denies any previous liver disease. She did have a T-max of 38.3, but currently is afebrile. She ate breakfast this morning and is feeling significantly better. She has no visual changes. She denies any neck pain. She denies any chest pain, cough, shortness of breath, nausea, vomiting, diarrhea or abdominal pain. She has no urinary symptoms. She has no myalgias or arthralgias. She has no known tick bites. She has not had any travel anywhere over the summer. She is currently in [place] as a student and returned to the area in early December. Her remaining review of systems is reviewed and unremarkable. She was also seen at an urgent care center prior to her admission to the hospital and was tested for mono at that time and her test was reportedly negative. PAST MEDICAL HISTORY: Significant for asthma, eczema, gastritis and upper respiratory infections. PAST SURGICAL HISTORY: Unremarkable. FAMILY HISTORY: Noncontributory. SOCIAL HISTORY: Negative for tobacco use, alcohol use or drug use. She currently is a student at [employer]. ALLERGIES: SHE HAS SULFA ALLERGY. CURRENT MEDICATIONS: Singulair, doxycycline, Rocephin, albuterol, Zofran, potassium, Motrin, Tylenol, Maalox, milk of magnesia, MiraLax and Zofran. PHYSICAL EXAMINATION: VITAL SIGNS: She currently is afebrile. T-max was 38.3 on arrival to the hospital, pulse 94, respiratory rate 18, blood pressure 94/56, oxygen saturation is 94-98% on room air. GENERAL: She is awake, alert and oriented x3. She is in no acute distress. HEENT: Mucous membranes are moist. Extraocular muscles are intact. HEART: Regular. LUNGS: Clear bilaterally. ABDOMEN: Soft, nontender, nondistended. There is no edema. SKIN: Does show a diffuse erythematous rash which is mildly warm and nontender to palpation. There are no open lesions or rashes on her anterior calf and thigh bilaterally. Trunk, upper extremities and face and back are without rash. LABORATORY STUDIES: CBC: White blood cell count today 2.5, hemoglobin 11.5, platelets 205 and these are improving. Chemistry panel: Sodium 142, potassium 3.5, chloride 110, bicarbonate 22, BUN 6, creatinine 1.0, glucose 90, AST 30, ALT 83. She does not have previous LFTs for comparison. Coxsackie antibodies are pending. EBV antibodies are pending. Parvo antibodies are pending. Previous studies 01/17, lumbar puncture, clear colorless fluid, 1 WBC, glucose 57, protein 36. A UA on the was negative. LFTs on the were within normal limits. Blood cultures are pending. CSF culture is negative and final. A CAT scan of the abdomen and pelvis on the showed a questionable cecal wall thickening. Chest x-ray done on the was negative. A CT of the head was negative as well. ASSESSMENT AND PLAN: Leukopenia and thrombocytopenia. Certainly, this is concerning for tick-borne illness associated with her fever and headache. Would continue doxycycline for a total of 14 days for suspected anaplasmosis, although peripheral smear was negative. Antibodies are pending. I suspect that her rashes are photosensitivity reaction to doxycycline. Surry was negative. I do not know if a blood patch would be of any benefit as her headache has resolved. Additional testing would include a screening for HIV, although I do not elicit any risk factors from the patient on my examination; however, her family is present during my exam. Thank you for this consultation.
--- NOTE | 2018-01-22 16:37 | Progress Note ---
Subjective Date of Service: Jan 22, 2018. Subjective Pt evaluation today including: conversation w/ patient, conversation w/ family , physical exam, chart review, lab review, review of studies, conversation w/ integrity consultant, review of inpatient medication list Generally feeling better, fair appetite, eating lunch, normal headache however developed confluent bilateral lower extremity skin rashes, sporadic rash in the cheek and upper lateral arm Problem List Medical Problems: (1) Fever Status: Acute (2) Gastritis Status: Acute (3) Headache Status: Acute (4) Hypokalemia Status: Acute (5) Post lumbar puncture headache Status: Acute (6) URI (upper respiratory infection) Status: Acute Review of Systems Constitutional: No fever, No chills, No sweats, No weight loss, No weakness, No fatigue, No problem reported Eyes: No worsening of vision, No eye pain, No redness, No discharge, No diplopia ENT: No hearing loss, No unusual epistaxis, No nasal symptoms, No sore throat, No tinnitus, No dental problems, No trouble swallowing Respiratory: No cough, No sputum, No wheezing, No shortness of breath, No dyspnea on exertion, No dyspnea at rest, No hemoptysis Cardiac: No chest pain, No orthopnea, No PND, No edema, No claudication, No palpitations Abdomen: No pain, No nausea, No vomiting, No diarrhea, No constipation Musculoskeletal: No joint pain, No muscle pain, No swelling, No calf pain Female : No dysuria, No urinary frequency, No hematuria, No incontinence, No abnormal vaginal bleeding, No vaginal discharge Neurologic: No memory loss, No paralysis, No weakness, No numbness/tingling, No vertigo, No balance problems Psychiatric: No depression symptoms, No anhedonism, No anxiety, No insomnia, No substance abuse Heme: No abnormal bleeding/bruising, No clotting problems, No swollen lymph nodes, No night sweats Endo: No fatigue, No excessive thirst, No excessive urination Skin: + rash, No itch, No new/changing skin lesions, No color change, No bleeding Objective Vital Signs Date Time Temp Pulse Resp B/P (MAP) Pulse Ox O2 Delivery O2 Flow Rate FiO2 01/22/18 16:06 36.9 94 18 98/64 (75) 94 Room Air 01/22/18 15:05 94 Room Air 01/22/18 09:35 94 Room Air 01/22/18 07:59 37.2 94 18 94/56 (69) 94 Room Air 01/22/18 07:40 Room Air 01/22/18 06:34 38.1 01/22/18 00:55 Room Air 01/22/18 00:05 37.8 104 16 126/83 98 Room Air 01/22/18 00:02 38.3 115 16 110/69 93 Room Air 01/21/18 23:05 38.3 105 16 114/94 100 Room Air 01/21/18 22:14 90 20 124/81 100 Room Air 01/21/18 21:02 101 20 119/82 100 Room Air 01/21/18 18:24 101 20 109/71 100 Room Air 01/21/18 17:05 36.7 131 20 114/72 97 Room Air Physical Exam General Appearance: WD/WN, no apparent distress, + thin Eyes: normal inspection, PERRL, EOMI, sclerae normal ENT: normal ENT inspection, hearing grossly normal, pharynx normal Neck: supple, no adenopathy, thyroid normal, no JVD, no carotid bruits, trachea midline Respiratory/Chest: chest non-tender, lungs clear, normal breath sounds, no respiratory distress, no accessory muscle use Cardiovascular: regular rate, rhythm, no edema, no gallop, no JVD, no murmur Abdomen: normal bowel sounds, non tender, soft, no organomegaly, no pulsatile mass Extremities: normal range of motion, non-tender, normal inspection, no pedal edema, no calf tenderness, normal capillary refill, pelvis stable Neurologic/Psychiatric: automobile 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 II-XII nml as tested, no motor/sensory deficits, alert, normal mood/affect, oriented x 3 Skin: normal color, warm/dry, + rash (Confluent rash in bilateral lower extremity sporadic rash in the upper lateral arm) Lymphatic: no adenopathy Laboratory Results Last 24 Hours Test 01/21/18 17:49 01/22/18 05:35 White Blood Count 1.88 K/uL 2.53 K/uL Red Blood Count 4.13 M/uL 3.86 M/uL Hemoglobin 12.3 g/dL 11.5 g/dL Hematocrit 35.9 % 33.3 % Mean Corpuscular Volume 86.9 fL 86.3 fL Mean Corpuscular Hemoglobin 29.8 pg 29.8 pg Mean Corpuscular Hemoglobin Concent 34.3 g/dl 34.5 g/dl Platelet Count 171 K/uL 205 K/uL Mean Platelet Volume 10.8 fL 10.6 fL Neutrophils (%) (Auto) 58.6 % 37.5 % Lymphocytes (%) (Auto) 27.7 % 52.2 % Monocytes (%) (Auto) 7.4 % 5.9 % Eosinophils (%) (Auto) 5.3 % 4.0 % Basophils (%) (Auto) 0.5 % 0.4 % Neutrophils # (Auto) 1.10 K/uL 0.95 K/uL Lymphocytes # (Auto) 0.52 K/uL 1.32 K/uL Monocytes # (Auto) 0.14 K/uL 0.15 K/uL Eosinophils # (Auto) 0.10 K/uL 0.10 K/uL Basophils # (Auto) 0.01 K/uL 0.01 K/uL RDW Standard Deviation 44.5 fL 44.1 fL RDW Coefficient of Variation 14.0 % 14.1 % Immature Granulocyte % (Auto) 0.5 % 0.0 % Immature Granulocyte # (Auto) 0.01 K/uL 0.00 K/uL Nucleated RBC Absolute Count (auto) 0.00 K/uL Nucleated Red Blood Cells % 0.0 % Large Platelets 1+ Echinocytes 1+ Peripheral Blood Smear Path Consult Sodium Level 143 mmol/L 142 mmol/L Potassium Level 3.1 mmol/L 3.5 mmol/L Chloride Level 110 mmol/L 110 mmol/L Carbon Dioxide Level 24 mmol/L 22 mmol/L Anion Gap 10.0 mmol/L 10.0 mmol/L Blood Urea Nitrogen 7 mg/dl 6 mg/dl Creatinine 1.04 mg/dl 1.05 mg/dl Est Creatinine Clear Calc Drug Dose 83.9 ml/min 83.1 ml/min Estimated GFR () 89.6 88.5 Estimated GFR (Non- 77.3 76.4 BUN/Creatinine Ratio 7.1 5.2 Random Glucose 86 mg/dl 90 mg/dl Calcium Level 8.8 mg/dl 7.8 mg/dl Total Bilirubin 0.4 mg/dl Aspartate Amino Transf (AST/SGOT) 17 U/L Alanine Aminotransferase (ALT/SGPT) 60 U/L Alkaline Phosphatase 127 U/L Total Protein 5.0 gm/dl Albumin 2.3 gm/dl Globulin 2.7 gm/dl Albumin/Globulin Ratio 0.9 Assessment and Plan 22 year old female with no significant PMH admitted to [facility] because of severe headache and skin rashes, with a headache, rash, diarrhea, vomiting, abdominal pain, fevers and fatigue. Upon admission, labs are significant for a low WCC, low potassium, low magnesium and mild elevation in liver enzymes. It is thought that her headache is due to her recent LP as well as an underlying infectious process. Post LP Headache has been improved, hold to do blood patch, continue current care with ibuprofen q4 prn, encourage caffeine intake during the day, continue IV fluid Fever headache and skin rash, Differential diagnosis include meningitis, other infectious disease such as sepsis, virus infection, tickborne disease, Most likely has anaplasmosis , infectious disease input appreciated , continue doxycycline for Skin rashes could be from doxycycline, under differential diagnosis include fifth disease, however patient hemoglobin is in normal range, and no joint pain , will continue supportive care watch the blood cell counts leukopenia secondary to viral process vs tick borne illness Continue ceftriaxone IV and oral doxycycline, talk more with infectious Follow-up la, order peripheral smear, r EBV, Parvovirus, CMV and Coxsackie B virus Hypokalemia Resolved DVT prophylaxis - SCD's Full Code I discussed with patient and patient's family about patient's conditions, The patient and family had multiple questions which were answered to their full satisfaction. Continued [facility] stay due to: multiple IV medications needed Discharge planning: home
--- NOTE | 2018-01-22 17:03 | Oncology Consultation ---
Oncology/Heme Consultation Date of Consultation: Jan 22, 2018. Attending Physician: Candelario Schneider MD, PhD Reason for Consultation: Neutropenia History of Present Illness Ms. Iqbal is a 22 year old woman with a history of allergies, asthma, and bowel issues. She was seen in the ER on 01/17 for a few days of fevers and headaches, along with abdominal pain and a dry cough. She had an LP which was negative and an extensive radiographic workup that revealed some mild colitis but otherwise no signs or symptoms of infection. Labs during that encounter were: WBC 6.22, Hgb 15.6, Plts 158. She was given a presumptive diagnosis of a viral URI and discharged with a plan to follow up with a PCP. She returned to the ER on 01/19 with a worsening headache and a diffuse, erythematous, blanching rash. Labs during that encounter: WBC 2.81, ANC 2.07, Hgb 11.8, Plts 118. She had a history of some outdoor work and multiple insect bites in the week or so leading up to this episode, so she was started empirically on doxycycline and testing for Ehrlichia and anaplasma was sent. She was also told she had a spinal headache secondary to the LP. [facility] and had a Monospot that was negative. She returned to the ER yesterday with persistent low-grade fevers (Tmax around 38.3) and a persistent headache. Her counts on admission were :WBC 1.88, Hgb 12.3, Plts 171K, ANC 1.1. Today, her ANC is slightly lower at 0.95, though her total WBC count is actually up. She denies any new medications, aside from the antibiotics. She also denies any OTC therapies. She denies any recent new sexual contacts, though she is sexually active with her boyfriend. She denies any IVDU. She is not aware of any sick contacts. She denies any lumps in her neck, dysphagia, odynophagia, or abnormal bleeding or bruising. 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 Allergies Coded Allergies: Sulfa Antibiotics (Verified Allergy, Unknown, UNKNOWN, 01/21/18) Home Medications Scheduled Control Pills ( Control Pills), 1 TAB PO DAILY Doxycycline (Monohydrate) (Doxycycline), 100 MG PO BID Loratadine & Pseudoephedrine (Claritin-D 24 Hour), 1 TAB PO DAILY Montelukast Sodium (Singulair), 10 MG PO QAM Scheduled PRN Albuterol Hfa (Ventolin Hfa), 2 PUFFS INH Q6H PRN for SOB/Wheezing Ondansetron Hcl (Zofran), 4 MG PO Q8H PRN for Nausea Current Inpatient Medications Current Inpatient Medications Medications (Trade) Dose Ordered Sig/Mariaelena Route Start Time Stop Time Status Last Admin Dose Admin Potassium Chloride 40 meq/ Sodium Chloride 1,020 ml @ 120 mls/hr Q8H30M IV 01/22/18 00:00 02/21/18 00:00 01/22/18 09:39 120 MLS/HR Ibuprofen (Motrin Tab) 600 mg Q4 PRN PO 01/21/18 23:45 02/20/18 23:44 01/22/18 16:24 600 MG Acetaminophen (Tylenol Tab) 650 mg Q4H PRN PO 01/21/18 23:45 02/20/18 23:44 01/22/18 15:10 650 MG Al Hydrox/Mg Hydrox/Simethicone (Maalox Max Susp) 15 ml Q4H PRN PO 01/21/18 23:45 02/20/18 23:44 Magnesium Hydroxide (Milk Of Magnesia Susp) 30 ml Q6H PRN PO 01/21/18 23:45 02/20/18 23:44 Polyethylene (Miralax Powder Packet) 17 gm DAILY PRN PO 01/21/18 23:45 02/20/18 23:44 Ondansetron HCl (Zofran Inj) 4 mg Q6H PRN IV 01/21/18 23:45 02/20/18 23:44 01/22/18 05:53 4 MG Albuterol (Ventolin Hfa Inhaler) 2 puffs Q6H PRN INH 01/22/18 00:15 02/21/18 00:14 Montelukast Sodium (Singulair Tab) 10 mg QAM PO 01/22/18 09:00 02/21/18 08:59 01/22/18 08:25 10 MG Ondansetron HCl (Zofran Tab) 4 mg Q8H PRN PO 01/22/18 00:15 02/21/18 00:14 Doxycycline Hyclate (Vibramycin Cap) 100 mg BID PO 01/22/18 09:00 02/05/18 08:59 01/22/18 08:40 100 MG Ceftriaxone Sodium 1 gm/ Dextrose 50 ml @ 100 mls/hr Q24H IV 01/22/18 08:00 01/24/18 07:59 01/22/18 08:23 100 MLS/HR Review of Systems Constitutional: + fever, + fatigue, No weight loss Eyes: No worsening of vision ENT: No unusual epistaxis Respiratory: + cough, No sputum, No shortness of breath Cardiovascular: No chest pain Abdomen: + pain, No nausea, No vomiting, No diarrhea Musculoskeletal: No joint pain, No muscle pain Genitourinary - Female: No dysuria Hematologic / Lymphatic: No abnormal bleeding/bruising, No swollen lymph nodes , No night sweats Integumentary: + rash Physical Exam Date Time Temp Pulse Resp B/P (MAP) Pulse Ox O2 Delivery O2 Flow Rate FiO2 01/22/18 16:06 36.9 94 18 98/64 (75) 94 Room Air 01/22/18 15:05 94 Room Air 01/22/18 09:35 94 Room Air 01/22/18 07:59 37.2 94 18 94/56 (69) 94 Room Air 01/22/18 07:40 Room Air 01/22/18 06:34 38.1 01/22/18 00:55 Room Air 01/22/18 00:05 37.8 104 16 126/83 98 Room Air 01/22/18 00:02 38.3 115 16 110/69 93 Room Air 01/21/18 23:05 38.3 105 16 114/94 100 Room Air 01/21/18 22:14 90 20 124/81 100 Room Air 01/21/18 21:02 101 20 119/82 100 Room Air 8/26/18 18:24 101 20 109/71 100 Room Air 01/21/18 17:05 36.7 131 20 114/72 97 Room Air General Appearance: WD/WN, no apparent distress Eyes: sclerae normal (anicteric) Respiratory/Chest: lungs clear, no respiratory distress Cardiovascular: regular rate, rhythm, no edema Abdomen/GI: non tender, soft, no organomegaly Extremities/Musculoskelatal: normal inspection, no pedal edema Neurologic/Psych: no motor/sensory deficits, alert, oriented x 3 Skin: + rash (blanching, erythematous, non-raised rash over her extremities) Lymphatic: no adenopathy Laboratory Results Last 24 Hours Test 01/21/18 17:49 01/22/18 05:35 White Blood Count 1.88 K/uL 2.53 K/uL Red Blood Count 4.13 M/uL 3.86 M/uL Hemoglobin 12.3 g/dL 11.5 g/dL Hematocrit 35.9 % 33.3 % Mean Corpuscular Volume 86.9 fL 86.3 fL Mean Corpuscular Hemoglobin 29.8 pg 29.8 pg Mean Corpuscular Hemoglobin Concent 34.3 g/dl 34.5 g/dl Platelet Count 171 K/uL 205 K/uL Mean Platelet Volume 10.8 fL 10.6 fL Neutrophils (%) (Auto) 58.6 % 37.5 % Lymphocytes (%) (Auto) 27.7 % 52.2 % Monocytes (%) (Auto) 7.4 % 5.9 % Eosinophils (%) (Auto) 5.3 % 4.0 % Basophils (%) (Auto) 0.5 % 0.4 % Neutrophils # (Auto) 1.10 K/uL 0.95 K/uL Lymphocytes # (Auto) 0.52 K/uL 1.32 K/uL Monocytes # (Auto) 0.14 K/uL 0.15 K/uL Eosinophils # (Auto) 0.10 K/uL 0.10 K/uL Basophils # (Auto) 0.01 K/uL 0.01 K/uL RDW Standard Deviation 44.5 fL 44.1 fL RDW Coefficient of Variation 14.0 % 14.1 % Immature Granulocyte % (Auto) 0.5 % 0.0 % Immature Granulocyte # (Auto) 0.01 K/uL 0.00 K/uL Nucleated RBC Absolute Count (auto) 0.00 K/uL Nucleated Red Blood Cells % 0.0 % Large Platelets 1+ Echinocytes 1+ Peripheral Blood Smear Path Consult Sodium Level 143 mmol/L 142 mmol/L Potassium Level 3.1 mmol/L 3.5 mmol/L Chloride Level 110 mmol/L 110 mmol/L Carbon Dioxide Level 24 mmol/L 22 mmol/L Anion Gap 10.0 mmol/L 10.0 mmol/L Blood Urea Nitrogen 7 mg/dl 6 mg/dl Creatinine 1.04 mg/dl 1.05 mg/dl Est Creatinine Clear Calc Drug Dose 83.9 ml/min 83.1 ml/min Estimated GFR () 89.6 88.5 Estimated GFR (Non- 77.3 76.4 BUN/Creatinine Ratio 7.1 5.2 Random Glucose 86 mg/dl 90 mg/dl Calcium Level 8.8 mg/dl 7.8 mg/dl Total Bilirubin 0.4 mg/dl Aspartate Amino Transf (AST/SGOT) 17 U/L Alanine Aminotransferase (ALT/SGPT) 60 U/L Alkaline Phosphatase 127 U/L Total Protein 5.0 gm/dl Albumin 2.3 gm/dl Globulin 2.7 gm/dl Albumin/Globulin Ratio 0.9 Assessment & Plan Ms. Iqbal has mild neutropenia in the setting of a resolving febrile illness. I suspect she had a viral syndrome as the cause. She did not have a transaminitis or neutrophil cytoplasmic inclusions, which argues against anaplasmosis/ ehrlichiosis. She also has no lymphadenopathy or significant fatigue, arguing against infectious mononucleosis. Her counts appear to be improving overall and should continue to do so over the next few days. If her ANC falls, we could consider a bone marrow biopsy, but I suspect this isn't necessary. She reports being monogamous with her boyfriend and both of them have been previously tested for HIV. Still, that is always a consideration in sexually active patients in this age group. She has no particular findings that point toward a hematologic or other malignancy.
[2018-01-23] MEDS: ONDANSETRON INJ 2 MG/ML 2 ML VIAL IV PRN (00:43)
[2018-01-23] MEDS: POTASSIUM CHLORIDE INJ 40 MEQ in SODIUM CHLORIDE 0.9% 1000ML 1,000 ML IV SCH ×2 (00:43→09:50)
[2018-01-23 07:24] LABS: BASO % 0.3 %; BASO ABS # 0.01 K/uL (0-0.2); EOS % 0.3 %; EOS ABS # 0.01 K/uL (0-0.5); HEMATOCRIT 36.1 % (37-47); HEMOGLOBIN 12.1 g/dL (12.0-16.0); IG# 0.06 K/uL (0.00-0.02); LYMPH % 34.3 %; LYMPH ABS # 1.09 K/uL (1.2-3.4); MEAN CELL VOLUME 86.2 fL (80-100); MEAN CORPUSCULAR HEMOGLOBIN 28.9 pg (25-34); MEAN CORPUSCULAR HGB CONC 33.5 g/dl (32-36); MEAN PLATELET VOLUME 10.2 fL (7.4-10.4); MONO % 7.2 %; MONO ABS # 0.23 K/uL (0.11-0.59); NEUT ABS # 1.78 K/uL (1.4-6.5); PLATELET COUNT 264 K/uL (130-400); RED CELL DISTRIBUTION WIDTH CV 13.9 % (11.5-14.5); RED CELL DISTRIBUTION WIDTH SD 43.9 fL (36.4-46.3); WHITE BLOOD COUNT 3.18 K/uL (4.8-10.8)
[2018-01-23] MEDS: CEFTRIAXONE SOD INJ 1 GM in DEXTROSE 5% ADD-VANTAGE 50ML 50 ML IV SCH (08:01)
[2018-01-23 08:04] VITALS: BP 123/84; PULSE 64; TEMP 36.7; O2SAT 96
[2018-01-23 08:07] LABS: CREATININE 0.71 mg/dl (0.60-1.20); PHOSPHORUS 3.5 mg/dl (2.5-4.9); POTASSIUM 4.6 mmol/L (3.5-5.1)
[2018-01-23] MEDS: ACETAMINOPHEN 325 MG TAB PO PRN (09:00)
[2018-01-23] MEDS: DOXYCYCLINE HYCLATE 100 MG CAP PO SCH (09:01)
[2018-01-23] MEDS: MONTELUKAST SOD 10 MG TAB PO SCH (09:01)
[2018-01-23] MEDS: IBUPROFEN 600 MG TAB PO PRN (11:10)
[2018-01-23] MEDS ORDERED: PRD20 PO (13:05)
--- NOTE | 2018-01-23 13:06 | Discharge Instructions ---
Discharge Instructions Date of Service Jan 23, 2018. Admission Reason for Admission: Post Lumbar Puncture Headache Discharge Discharge Diagnosis / Problem: possibel anaplasmosis Discharge Goals Goal(s): Decrease discomfort, Improve function, Increase independence, Improve disease control, Improve nutritional status, Learn about illness, Diagnostic testing, Therapeutic intervention, Prevent Disease Progression, Specific goals Activity Recommendations Activity Limitations: per Instructions/Follow-up section . Instructions / Follow-Up Instructions / Follow-Up you have Post LP Headache has been improved, Fever headache and skin rash improving you possible have anaplasmosis , continue doxycycline for 8 days more Skin rashes could be from doxycycline, or 5th disease, need to avoid sunshine while on Doxycycline I am, giving you tapering dose of oral prednisone too: 20mg tab, 1 tab po x1 day, then 1/2 tab po daily for 2 day then stop ok to start school if continue feeling better in 1 week - you need to follow up with your Dr. Thompson in 3-5 days , call her if have any questions - take medication as instructed, never overdose or any misuse, or take with alcohol, because misuse of medicine may cause organ damage or , call me , or your primary care physician if have questions of discharge medicaitons. - call your physician, or go to local emergency room if has any fever/chill, chest pain, shortness of breathing, nausea/vomiting/abdominal pain, facial droop /slurry speech/local weakness, or if has any questions. all new medicine has BEEN TRANSMITTED to [facility] Current Hospital Diet Patient's current hospital diet: Regular Diet Discharge Diet Recommended Diet: Regular Diet Pending Studies Studies pending at discharge: no Medical Emergencies . Who to Call and When: Medical Emergencies: If at any time you feel your situation is an emergency, please call 911 immediately. . Non-Emergent Contact Non-Emergency issues call your: Specialist . . "Provider Documentation" section prepared by Candelario Schneider. .
[2018-01-23] MEDS ORDERED: DXY100 PO (13:07)
[2018-01-23 13:18] VITALS: BP 123/84; PULSE 64; TEMP 36.7; O2SAT 96
--- NOTE | 2018-01-23 17:50 | Discharge Summary ---
Discharge Summary Date of Service Jan 23, 2018. Discharge Summary Admission Date: Jan 21, 2018 at 23:40 Discharge Date: Jan 23, 2018 Discharge Disposition: Home Principal Diagnosis: Post LP Headache Problems/Secondary Diagnoses: skin rash i possible have anaplasmosis , Immunizations: Have You Had Influenza Vaccine: Unknown History of Tetanus Vaccine?: Unknown History of Pneumococcal: Unknown History of Hepatitis B Vaccine: Unknown Procedures: Pleasant, feeling better, up and walk, but easily feel tired, skin rash has disappeared from the face and is better in bilateral lower extremity, denies fever and chills Medication Reconciliation New Medications: Doxycycline Hyclate (Doxycycline Hyclate) 100 Mg Cap 100 MG PO BID for 8 Days, #16 CAP Prednisone (Prednisone) 20 Mg Tab 40 MG PO DAILY for 3 Days, #2 TAB 2omg tab, 1 tab po x1 day, then 1/2 tab po daily for 2 day then stop Continued Medications: Albuterol Hfa (Ventolin Hfa) 200 Puffs/24785 Mcg Aers 2 PUFFS INH Q6H PRN for SOB/Wheezing, INHALER Control Pills ( Control Pills) Tab 1 TAB PO DAILY, TAB Doxycycline (Monohydrate) (Doxycycline) 100 Mg Cap 100 MG PO BID for 21 Days, #42 TAB Loratadine & Pseudoephedrine (Claritin-D 24 Hour) 1 Tab Tab 1 TAB PO DAILY, TAB Montelukast Sodium (Singulair) 10 Mg Tab 10 MG PO QAM, TAB Ondansetron Hcl (Zofran) 4 Mg Tab 4 MG PO Q8H PRN for Nausea, #12 TAB Discharge Exam Feeling good complaints Review of Systems: Constitutional: No fever, No chills, No sweats, No weight loss, No weakness , No fatigue, No problem reported Eyes: No worsening of vision, No eye pain, No redness, No discharge, No diplopia, No problem reported ENT: No hearing loss, No unusual epistaxis, No nasal symptoms, No sore throat, No tinnitus, No dental problems, No trouble swallowing, No problem reported Respiratory: No cough, No sputum, No wheezing, No shortness of breath, No dyspnea on exertion, No dyspnea at rest, No hemoptysis, No problem reported Cardiovascular: No chest pain, No orthopnea, No PND, No edema, No claudication, No palpitations, No problem reported Abdomen: No pain, No nausea, No vomiting, No diarrhea, No constipation, No GI bleeding, No problem reported Musculoskeletal: No joint pain, No muscle pain, No swelling, No calf pain, No problem reported Genitourinary - Female: No dysuria, No urinary frequency, No urinary urgency , No urinary incontinence, No urinary retention, No hematuria, No dysmenorrhea, No menorrhagia, No metrorrhagia, No rash, No vaginal bleeding, No vaginal discharge, No vaginal itching, No vulvodynia, No , No problem reported Neurologic: No memory loss, No paralysis, No weakness, No numbness/tingling , No vertigo, No balance problems, No problem reported Psychiatric: No depression symptoms, No anhedonism, No anxiety, No insomnia , No substance abuse, No problem reported Endocrine: No fatigue, No excessive thirst, No excessive urination, No problem reported Hematologic / Lymphatic: No abnormal bleeding/bruising, No clotting problems , No swollen lymph nodes, No night sweats, No problem reported Integumentary: + rash Physical Exam: General Appearance: WD/WN, no apparent distress Eyes: normal inspection, PERRL, EOMI ENT: hearing grossly normal Neck: supple, no adenopathy Respiratory/Chest: chest non-tender, lungs clear, normal breath sounds, no respiratory distress Cardiovascular: regular rate, rhythm, no edema, no gallop, no JVD, no murmur Abdomen / GI: normal bowel sounds, non tender, soft, no organomegaly, no pulsatile mass Extremities: normal inspection, no calf tenderness, normal capillary refill , no pedal edema 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 Upon admission, labs are significant for a low WCC, low potassium, low magnesium and mild elevation in liver enzymes. It is thought that her headache is due to her recent LP as well as an underlying infectious process. Today neutropenic is totally resolved Post LP Headache has been improved, hold to do blood patch, continue current care with ibuprofen q4 prn, encourage caffeine intake during the day, continue IV fluid, today's almost resolved Fever headache and skin rash, with a normal headache, skin rash is better Differential diagnosis include meningitis, other infectious disease such as sepsis, virus infection, tickborne disease, Most likely has anaplasmosis , infectious disease input appreciated , continue doxycycline for Skin rashes could be from doxycycline, under differential diagnosis include fifth disease, however patient hemoglobin is in normal range, and no joint pain , will continue supportive care watch the blood cell counts leukopenia secondary to viral process vs tick borne illness Continue ceftriaxone IV and oral doxycycline, talk more with infectious Follow-up la, order peripheral smear, r EBV, Parvovirus, CMV and Coxsackie B virus Hypokalemia Resolved Discussed with infectious disease, patient likely have anaplasmosis , continue doxycycline for 8 days more DVT prophylaxis - SCD's Full Code I discussed with patient and patient's family about patient's conditions, The patient and family had multiple questions which were answered to their full satisfaction. Instructions / Follow-Up you have Post LP Headache has been improved, Fever headache and skin rash improving you possible have anaplasmosis , continue doxycycline for 8 days more Skin rashes could be from doxycycline, or 5th disease, need to avoid sunshine while on Doxycycline I am, giving you tapering dose of oral prednisone too: 20mg tab, 1 tab po x1 day, then 1/2 tab po daily for 2 day then stop ok to start school if continue feeling better in 1 week - you need to follow up with your Dr. Thompson in 3-5 days , call her if have any questions - take medication as instructed, never overdose or any misuse, or take with alcohol, because misuse of medicine may cause organ damage or , call me , or your primary care physician if have questions of discharge medicaitons. - call your physician, or go to local emergency room if has any fever/chill, chest pain, shortness of breathing, nausea/vomiting/abdominal pain, facial droop /slurry speech/local weakness, or if has any questions. all new medicine has BEEN TRANSMITTED to [facility] Total Time Spent: Greater than 30 minutes This includes examination of the patient, discharge planning, medication reconciliation, and communication with other providers. Discharge Instructions Please refer to the electronic Patient Visit Report (Discharge Instructions) for additional information. Additional Copies To Jennifer. Thompson D.O.
[2018-01-25 16:30] LABS: PARVOVIRUS IgM INDEX 0.3 (<0.9)
== END 2018-01-23 14:51 | disposition home or self-care (01) | DRG 868 ==
LOC: C.EDB 17:02 → C.MSN 23:40 → EDBEDREQ 23:45
PROVIDERS: ADMIT Hospitalist; ATTEND Hospitalist
DX: A77.49 Other ehrlichiosis (principal); B08.3 Erythema infectiosum [fifth disease]; G97.1 Other reaction to spinal and lumbar puncture; L27.0 Generalized skin eruption due to drugs and medicaments taken internally; T36.4X5A Adverse effect of tetracyclines, initial encounter; D70.3 Neutropenia due to infection; E87.6 Hypokalemia; J45.909 Unspecified asthma, uncomplicated; Z79.899 Other long term (current) drug therapy; Z88.2 Allergy status to sulfonamides; Z82.49 Family history of ischemic heart disease and other diseases of the circulatory system; Y84.8 Other medical procedures as the cause of abnormal reaction of the patient, or of later complication, without mention of misadventure at the time of the procedure; Y99.8 Other external cause status; K29.00 Acute gastritis without bleeding; D61.818 Other pancytopenia; E83.51 Hypocalcemia; Z80.9 Family history of malignant neoplasm, unspecified; Z83.49 Family history of other endocrine, nutritional and metabolic diseases; Z79.3 Long term (current) use of hormonal contraceptives